=== PATIENT | female | born 1945 | race Caucasian/White ===

== ENCOUNTER → 2023-04-15 23:19 | Outpatient (CLI) | payer MEDICARE, SELFPAY ==
[2023-04-15 18:57] LABS: Hemoglobin A1C 10.4 % (4.0-6.0)
== END ==
PROVIDERS: PCP Family Medicine; Visit Provider Family Medicine
DX: E11.9 Type 2 diabetes mellitus without complications (principal); Z79.4 Long term (current) use of insulin
CPT/HCPCS: 83036

== ENCOUNTER → 2023-07-17 23:18 | Outpatient (CLI) | payer MEDICARE, SELFPAY ==
[2023-07-17 19:27] LABS: Alanine Aminotransferase 27 U/L (12-78); Albumin Level 4.2 g/dl (3.5-5.0); Albumin/Globulin Ratio 1.5 (1.1-1.8); Alkaline Phosphatase 75 U/L (38-126); Anion Gap 15.7 mEq/L (5-15); Aspartate Amino Transferase 33 U/L (14-36); Bilirubin,Total 0.3 mg/dl (0.2-1.3); Blood Urea Nitrogen 19 mg/dl (7-17); Calcium 9.9 mg/dl (8.4-10.2); Carbon Dioxide 21 mmol/L (22.0-30.0); Chloride 105 mmol/L (98-107); Chol/HDL Ratio 3.4 (1-3.5); Cholesterol 208 mg/dl (140-200); Estimated Glomerular Filt Rate 70 ml/min (>60); GFR (African American) 84 ML/MIN (>60); Globulin 2.8 g/dL (1.3-3.2); Glucose 370 mg/dl (74-100); HDL Cholesterol 62 mg/dl (40-60); Potassium 4.7 mmoL/L (3.5-5.1); Sodium 137 mmol/L (136-145); Triglycerides 211 mg/dl (30-150); VLDL Cholesterol 42 mg/dL (0-40)
[2023-07-17 19:39] LABS: Direct LDL Cholesterol 120.31 mg/dL (100-129)
[2023-07-17 20:13] LABS: Hemoglobin A1C 9.3 % (4.0-6.0)
== END ==
PROVIDERS: PCP Family Medicine; Visit Provider Family Medicine
DX: E11.9 Type 2 diabetes mellitus without complications (principal); C18.9 Malignant neoplasm of colon, unspecified; Z79.4 Long term (current) use of insulin; Z79.84 Long term (current) use of oral hypoglycemic drugs
CPT/HCPCS: 80053; 80061; 83036

== ENCOUNTER 2024-04-06 16:24 | Outpatient (CLI) | payer MEDICARE, SELFPAY ==
[2024-04-08 08:48] LABS: CEA 2.3 ng/mL (0.0-4.7)
== END 2024-04-06 23:59 | disposition home or self-care (01) ==
LOC: LAB.DROPOF 04-07 16:25
PROVIDERS: PCP Family Medicine; Visit Provider Family Medicine
DX: N39.0 Urinary tract infection, site not specified (principal); C18.9 Malignant neoplasm of colon, unspecified
CPT/HCPCS: 82378; 87086; 87088; 87186

== ENCOUNTER 2025-07-09 09:47 | Outpatient (CLI) | payer MEDICARE, SELFPAY ==
[2025-07-09 19:36] LABS: Alanine Aminotransferase 30 U/L (12-78); Albumin Level 3.3 g/dl (3.5-5.0); Albumin/Globulin Ratio 0.9 (1.1-1.8); Alkaline Phosphatase 86 U/L (38-126); Anion Gap 12.6 mEq/L (5-15); Aspartate Amino Transferase 49 U/L (14-36); Bilirubin,Total 0.6 mg/dl (0.2-1.3); Blood Urea Nitrogen 15 mg/dl (7-17); Calcium 9.9 mg/dl (8.4-10.2); Carbon Dioxide 24 mmol/L (22.0-30.0); Chloride 102 mmol/L (98-107); Creatinine,Serum 0.90 mg/dl (0.52-1.04); Estimated Glomerular Filt Rate 61 ml/min (>60); GFR (African American) 73 ML/MIN (>60); Globulin 3.8 g/dL (1.3-3.2); Potassium 4.6 mmoL/L (3.5-5.1); Sodium 134 mmol/L (136-145); Total Protein,Serum 7.1 g/dl (6.3-8.2)
[2025-07-09 19:48] LABS: Glucose 411 mg/dl (74-100)
--- OUTSIDE RECORDS SUMMARY | 2025-07-12 09:59 | XMS_ITS | Continuity of Care Document ---
[facility] Organization [facility] Address [address] [place] [address] Assessment No assessment recorded. Plan of Treatment Reminders Order Date Submit Date Provider Last Modified By Organization Details Last Modified Time Details Appointments None recorded. Lab None recorded. Referral None recorded. Procedures None recorded. Surgeries None recorded. Imaging None recorded. Medication Orders Macrobid 100 mg capsule 2024 025 [facility] [place] [id number] [facility], [place], [address], 16:01:10 Patient TargetsNo targets recorded. Patient Instructions Encounter Date Encounter Id Patient Instructions Last Modified By Organization Details Last Modified Time 07/07/2025 [id number] learning about healthy weight Not available 07/07/2025 17:33:34 body mass index: care instructions Not available 07/07/2025 17:33:34 Take your antibiotics as directed. Do not stop taking them just because you feel better. You need to take the full course of antibiotics. Drink extra water and other fluids for the next day or two. This will help make the urine less concentrated and help wash out the bacteria that are causing the infection. (If you have kidney, heart, or liver disease and have to limit fluids, talk with your doctor before you increase the amount of fluids you drink.) Avoid drinks that are carbonated or have caffeine. They can irritate the bladder. Urinate often. Try to empty your bladder each time. To relieve pain, take a hot bath or lay a heating pad set on low over your lower belly or genital area. Never go to sleep with a heating pad in place. Not available 07/07/2025 17:10:21 unable to urinat e in office Specium cup given to pt, advised to return it after she voids Advised to take medication as directed Will call with results of labs once available To call office for questions, concerns or issues Not available 07/07/2025 17:10:12 Reason for Referral None Reported. Problems Name Problem SNOMED Code Status Onset Date Resolution Date Notes Provider Name and Address Organization Details Recorded Time Hospice care Completed 05/24/2020 This problem was added from Social History by prashant on 10/08/19 19 Kathy Smith null, [place] - [facility] 0 17:36:19 Acquired hypothyr oidism 024791259 Active 2016 Crystal Kathryn null, [place] - [facility] 1 13:54:48 Mixed hyperlip idemia 276448857 Active 2016 Crystal Kathryn null[place] - [facility] 1 13:54:48 [facility] hyperten margarita 96604528 Active 2016 Crystal Kathryn [place] [facility] 1 13:54:48 Chronic anxiety 155353903 Active 2016 Crystal Kathryn [place] [facility] 1 13:54:48 Diabetes mellitus 10455491 Completed 201612/05/2020 Rachana Graves RN [address] [facility], [place], [address] , [place] - [facility] 1 07:52:02 Gastroes ophageal reflux disease without esophagi tis 565735631 Active 2016 Crystal Kathryn [place] [facility] 1 13:54:48 Major depressi ve disorder 215867263 Active 2016 Crystal Kathryn [place] [facility] 1 13:54:48 Steatoti c liver disease 201481966 Active 2016 Crystal Kathryn [place] [facility] 1 13:54:48 Deviated nasal septum 401818249 Active 2016 Crystal Kathryn [place] [facility] 1 13:54:48 Renewal of prescrip tion Completed 201612/24/2017 Piedad [place] - [facility] 8 12:41:39 Persiste nt insomnia 036558737 Active 2017 Crystal Kathryn [place] [facility] 1 13:54:48 Degenera tion of interver tebral disc 06437670 Active 2017 Crystal Kathryn [place] [facility] 1 13:54:48 Generali zed osteoart hritis 195013392 Active 2017 Crystal Kathryn [place] [facility] 1 13:54:48 Pain radiatin g to neck 646873893 Completed 201703/14/2018 Piedad Aquinohop null[place] - [facility] 8 19:14:35 Degenera tion of cervical interver tebral disc 14767505 Active 2017 Rachana Del Tororod null[place] - [facility] 1 13:54:48 Recurren t major depressi on 88563908 Active 2020 Rachana Del Tororod [place] - [facility] 1 13:54:48 Malignan t neoplasm of colon 895748096 Active 2020 Kathy Sarah null[place] - [facility] 1 14:10:59 Uncontro lled type 2 diabetes mellitus 999633378 Active 2021 Zachary Abel null[place] - [facility] 2 14:43:51 Allergic rhinitis 13526423 Completed 202205/28/2023 Rachana Peralta null, [place] - [facility] 3 13:36:38 Pain of right shoulder joint 84882453448 705939 Completed 202212/16/2024 Rachana Graves, RN [address], [place], [address] , [place] - [facility] 5 11:18:22 Chronic back pain 815575436 Active 2022 Sandy Quintana, [employer] [address], [place], [address] , [place] - [facility] 3 15:01:26 Increase d frequenc y of urinatio n 708343675 Completed 202212/16/2024 Rachana Graves RN [address], [place], [address] , [place] [facility] 5 11:18:02 Type 2 diabetes mellitus 26509159 Active 2022 Sandy Quintana, GUNNAR [address], [place], [address] , [place] [facility] 3 14:24:29 Leukocyt es in urine 828583533 Completed 202212/16/2024 Rachana Graves RN [address], [place], [address] , [place] [facility] 5 11:18:07 Acute urinary tract infectio n 475456363 Completed 202212/10/2023 Crystal Kathryn null[place] - [facility] 4 13:04:20 Acquired absence of cervix and uterus 933084639 Active 2023 Crystal Kathryn [place] - [facility] 4 13:10:54 Acute lower respirat ory tract infectio n 600065165 Completed 202312/20/2023 Crystal Kathryn [place] - [facility] 4 13:05:57 Urine culture - E. 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 Procedures Surgical History Date Name Laterality Status Provider Name and Address Organization Details Recorded Time Advance Care Planning completed Rachana Peralta [place] - [facility] 12/05/2020 09:02:19 021 Functional Status Assessed completed Crystal Kathryn [place] - [facility] 12/05/2020 09:02:20 021 Colonoscopy completed Rachana BARRERA - [facility] 12/05/2020 09:11:46 018 Cryosurgery Dermatology completed Kathy Smith [place] - [facility] 04/10/2018 15:22:14 018 Cryosurgery Dermatology completed Kathy Smith [place] - [facility] 04/07/2018 16:52:25 018 Shave Biopsy trunk, arms, or legs completed Kathy Short [place] - [facility] 04/10/2018 15:28:52 018 Advance Care Planning completed Piedad De Los Santos [place] - [facility] 02/26/2018 08:09:53 018 Suture/Staple removal completed Neo Gu [place] - [facility] 12/18/2017 11:26:24 018 Skin Lesion/Tag Removal- SS completed Piedad De Los Santos [place] - [facility] 12/10/2017 19:05:34 000 total hysterectomy completed Rachana Peralta [place] - [facility] 12/10/2023 13:10:27 Cholecystectomy, laparoscopic completed Rachana BARRERA - [facility] 05/23/2020 14:24:22 Cystourethroscopy completed Piedad De Los Santos [place] - [facility] 03/18/2017 15:38:07 Nsl/sins ndsc frnt tiss rmvl completed Piedad BARRERA - [facility] 03/18/2017 15:38:17 Imaging Results None recorded. Procedure Notes None recorded. Medical Equipment None Reported. Allergies Allergen ID Allergen Name Allergen Category Reaction Reaction Severity Criticality Documentation Date Start Date Code Code System Note Provider Name and Address Organization Details Recorded Time [id number] Farxiga medicatio n vomiting Not available Not available 04/25/2021 81022 72 RxNorm Miriam Leiva PharmD [address], [place], [address], [place] - [facility] 3 11:38:01 355626 Januvia medicatio n vomiting Not available Not available 08/06/2022 76607 6 RxNorm Miriam Leiva PharmD [address], [place], [address], [place] - [facility] 3 11:38:11 54582 citalopra m hydrobrom jef medicatio n vomiting Not available Not available 06/15/20162009 97012 8 RxNorm Miriam Leiva PharmD [address], [place], [address], [place] - [facility] 3 11:37:45 64929 Wellbutri n medicatio n dizziness Not available Not available 06/15/20162009 19601 RxNorm React ion: Verti go; Not Available [facility] 09:04:46 Medications Name Sig Start Date Stop Date Status Note LastModified by Organization Details LastModified Time Prescript ion - Clarifica tion 05/23 completed ANTHEM Not Available Not Available Not Available celecoxib 200 mg capsule TAKE 1 CAPSULE BY MOUTH EVERY DAY 07/07 completed Not Available Not Available Not Available amoxicill in 500 mg capsule TAKE ONE (1) CAPSULE EVERY 8 HOURS BY ORAL ROUTE FOR 7 DAYS. 08/14 completed Not Available Not Available Not Available fluconazo le 100 mg tablet 11/29 completed Not Available Not Available Not Available bupropion HCl SR 150 mg tablet,12 hr sustained -release take 1 tablet (150 mg) by oral route 2 times per day for 30 days 10/10 completed bupropio n HCl 150 mg oral tablet extended release; Recorded Status: Recorded on: 04/04/20 10 9:50AM;D iscontin ued Status: Disconti nued on: 10/10/19 11 9:06AM;U ser: calvom;E st. Completi on: 07/03/20 10;Print ed: 04/04/20 10 Not Available Not Available Not Available promethaz ine-DM 6.25 mg-15 mg/5 mL oral syrup TAKE FIVE (5) ML EVERY FOUR (4) HOURS BY ORAL ROUTE NEEDED. 12/09 completed Not Available Not Available Not Available levothyro xine 137 mcg tablet TAKE ONE TABLET BY MOUTH ONCE DAILY 05/24 completed reduced dose Not Available Not Available Not Available doxycycli ne hyclate 100 mg capsule Take 1 capsule twice a day by oral route for 7 days. 12/16 completed Not Available Not Available Not Available paroxetin e 10 mg tablet 1 tab p.o daily for 2 weeks, then increase to 2 tabs a day , if well tolerate d give enough for a month 04/04 completed paroxeti ne HCl 10 mg oral tablet;c omment: GI side effects; Recorded Status: Recorded on: 01/07/20 10 12:24PM; Disconti nued Status: Disconti nued on: 04/04/20 10 9:47AM;U ser: stephanie; Est. Completi on: 02/06/20 10;Print ed: 01/07/20 10 Not Available Not Available Not Available ipratropi um 0.5 mg-albute rol 3 mg (2.5 mg base)/3 mL nebulizat ion soln INHALE THREE (3) ML FOUR (4) TIMES A DAY BY NEBULIZA TION ROUTE FOR 30 DAYS. 02/23 completed Not Available Not Available Not Available Glucophag e 500 mg tablet po bid 02/04 completed Glucopha ge 500 mg oral tablet;R ecorded Status: Recorded on: 10/18/19 09 1:50PM;D iscontin ued Status: Disconti nued on: 02/05/20 09 3:46PM;U ser: lila; Est. Completi on: 04/16/20 09;Indic ation: Type 2 Diabetes Mellitus - () Not Available Not Available Not Available trazodone 50 mg tablet take 1 tablet (50 mg) by oral route once daily at bedtime for 30 days 01/31 completed trazodon e 50 mg oral tablet;R ecorded Status: Recorded on: 10/02/19 12 9:28AM;D iscontin ued Status: Disconti nued on: 02/01/20 12 8:43AM;U ser: calvom;E st. Completi on: 12/31/19 12;Indic ation: Insomnia - ([phone] 20);Prin ino: 10/02/19 12 Not Available Not Available Not Available cetirizin e 10 mg tablet Take 1 tablet every day by oral route for 30 days. 02/18 completed Not Available Not Available Not Available azithromy kevin 250 mg tablet TAKE TWO (2) TABLETS BY MOUTH ON DAY ONE (1) THEN TAKE ONE (1) TABLET BY MOUTH ON DAYS 2-5. 11/22 completed Not Available Not Available Not Available tizanidin e 4 mg tablet TAKE ONE (1) TABLET TWICE A DAY BY ORAL ROUTE NEEDED. 03/30 completed Not Available Not Available Not Available fluconazo le 150 mg tablet TAKE ONE (1) TABLET (150 MG) BY ORAL ROUTE ONCE DAILY FOR THREE (3) DAYS 11/29 completed Not Available Not Available Not Available benzonata te 200 mg capsule TAKE ONE (1) CAPSULE THREE (3) TIMES A DAY BY ORAL ROUTE NEEDED FOR 7 DAYS. 05/30 completed Not Available Not Available Not Available ampicilli n 500 mg capsule Take 1 capsule 3 times a day by oral route for 7 days. 05/07 completed Not Available Not Available Not Available hydrocodo ne 5 mg-acetam inophen 325 mg tablet TAKE ONE (1) TABLET BY MOUTH AT BEDTIME NIGHTLY NEEDED FOR PAIN 03/06 completed Not Available Not Available Not Available ondansetr on HCl 8 mg tablet TAKE ONE (1) TABLET BY MOUTH EVERY EIGHT (8) HOURS NEEDED FOR NAUSEA. active Not Available Not Available No t Available Avelox 400 mg tablet take 1 tablet (400 mg) by oral route once daily for 7 days 04/10 completed Avelox 400 mg oral tablet;R ecorded Status: Recorded on: 02/28/20 11 10:55AM; Disconti nued Status: Disconti nued on: 04/10/20 11 8:43AM;U ser: calvom;E st. Completi on: 03/06/20 11;Indic ation: Skin and Skin Structur e Infectio n - ([phone] 00) Not Available Not Available Not Available meloxicam 15 mg tablet TAKE 1 TABLET BY MOUTH EVERY DAY 03/06 completed Not Available Not Available Not Available lisinopri l 20 mg tablet TAKE ONE (1) TABLET BY MOUTH EVERY DAY active Not Available Not Available No t Available Medrol (Donato) 4 mg tablets in a dose pack take as directed for 6 days 12/16 completed Not Available Not Available Not Available Levoxyl 100 mcg tablet take 1 tablet (100 mcg) by oral route once daily 10/18 completed Levoxyl 100 mcg oral tablet;R ecorded Status: Recorded on: 09/20/19 2:32PM;D iscontin ued Status: Disconti nued on: 10/18/19 1:50PM;U ser: neuss;Es t. Completi on: 10/20/19 09;Print ed: 09/20/19 Not Available Not Available Not Available lovastati n 40 mg tablet TAKE TWO (2) TABLETS EVERY DAY BY ORAL ROUTE IN THE EVENING FOR 90 DAYS. 05/04 completed Not Available Not Available Not Available olanzapin e 5 mg tablet TAKE ONE (1) TO TWO (2) TABLETS BY MOUTH NIGHTLY. 11/14 completed Not Available Not Available Not Available Accu-Chek Softclix Lancets TEST BLOOD SUGAR EVERY DAY active Not Available Not Available No t Available promethaz ine 6.25 mg-codein e 10 mg/5 mL syrup TAKE FIVE (5) MILLILIT ERS BY ORAL ROUTE EVERY SIX (6) HOURS NEEDED, NOT TO EXCEED 30 ML IN 24 HOURS FOR 7 DAYS 05/04 completed Not Available Not Available Not Available bacitraci n 500 unit/gram topical ointment APPLY ONE (1) APPLICAT ION THREE (3) TIMES A DAY BY TOPICAL ROUTE FOR 7 DAYS. 11/29 completed Not Available Not Available Not Available diphenoxy late-atro pine 2.5 mg-0.025 mg tablet ALTERNAT E WITH IMODIUM. NO MORE THAN FOUR (4) PILLS PER DAY. 03/30 completed Not Available Not Available Not Available melatonin 3 mg tablet Take 1 tablet every day by oral route in the evening. 11/14 completed Not Available Not Available Not Available ciproflox acin 250 mg tablet TAKE ONE (1) TABLET TWICE A DAY BY ORAL ROUTE FOR 10 DAYS. 04/11 completed Not Available Not Available Not Available amlodipin e 5 mg tablet TAKE ONE (1) TABLET BY MOUTH EVERY DAY 11/14 completed Not Available Not Available Not Available prochlorp erazine maleate 10 mg tablet TAKE 1 TABLET BY MOUTH EVERY 8 HOURS NEEDED FOR NAUSEA OR VOMITING 04/10 completed Not Available Not Available Not Available valacyclo vir 500 mg tablet TAKE 1 TABLET BY MOUTH EVERY 12 HOURS 03/30 completed Not Available Not Available Not Available ciproflox acin 500 mg tablet TAKE ONE (1) TABLET EVERY 12 HOURS BY ORAL ROUTE FOR 7 DAYS. 02/26 completed Not Available Not Available Not Available sulfameth oxazole 800 mg-trimet hoprim 160 mg tablet TAKE 1 TABLET BY MOUTH TWICE DAILY 05/04 completed Not Available Not Available Not Available omeprazol e 40 mg capsule,d elayed release TAKE ONE (1) CAPSULE EVERY DAY BY ORAL ROUTE FOR 90 DAYS. active Not Available Not Available No t Available aspirin 81 mg tablet,de layed release TAKE ONE (1) TABLET BY MOUTH DAILY FOR 90 DAYS. active OTC per [facility] 02/23/25 Not Available Not Available Not Available acyclovir 800 mg tablet take 1 tablet (800 mg) by oral route 5 times per day for 10 days 04/10 completed acyclovi r 800 mg oral tablet;R ecorded Status: Recorded on: 02/29/20 11 8:48AM;D iscontin ued Status: Disconti nued on: 04/10/20 11 8:43AM;U ser: calvom;E st. Completi on: 03/10/20 11;Print ed: 02/29/20 11 Not Available Not Available Not Available ondansetr on 8 mg disintegr ating tablet DISSOLVE 1 TABLET ON THE TONGUE EVERY 8 HOURS NEEDED FOR NAUSEA. DO NOT TAKE FOR 3 DAYS AFTER CHEMOTHE RAPY GIVEN ALOXI 03/28 completed Not Available Not Available Not Available lidocaine -prilocai ne 2.5 %-2.5 % topical cream APPLY ONE NICKEL-S IZED GLOB OVER PORT APPROXIM ATELY 30 MINUTES BEFORE APPOINTM ENT. DO NOT RUB IN. COVER WITH PLASTIC WRAP. 01/09 completed Not Available Not Available Not Available Macrobid 100 mg capsule Take 1 capsule every 12 hours by oral route for 5 days. 2024 active Not Available Not Available Not Avai lable ceftriaxo ne 1 gram solution for injection Take 1 g by injectio n route. 05/07 completed Not Available Not Available Not Available citalopra m 20 mg tablet take 1 tablet (20 mg) by oral route once daily for 30 days 01/06 completed citalopr am 20 mg oral tablet;R ecorded Status: Recorded on: 01/04/20 10 10:11AM; Disconti nued Status: Disconti nued on: 01/07/20 10 12:04PM; User: Chava Damon on: 02/03/20 10;Print ed: 01/04/20 10 Not Available Not Available Not Available lorazepam 0.5 mg tablet TAKE ONE (1) TABLET BY MOUTH EVERY DAY NEEDED 05/28 completed Not Available Not Available Not Available metoclopr amide 5 mg tablet 02/18 completed Not Available Not Available Not Available imiquimod 5 % topical cream packet APPLY TO THE AFFECTED AREA(S) BY TOPICAL ROUTE 5 TIMES PER WEEK as needed 05/23 completed Not Available Not Available Not Available phenazopy ridine 100 mg tablet 05/23 completed Not Available Not Available Not Available cephalexi n 500 mg capsule TAKE ONE (1) CAPSULE (500 MG) BY ORAL ROUTE EVERY 12 HOURS FOR 7 DAYS 11/09 completed Not Available Not Available Not Available trazodone 150 mg tablet Take 1 tablet every day by oral route in the evening. 02/26 completed Not Available Not Available Not Available metformin 1,000 mg tablet TAKE ONE (1) TABLET BY MOUTH TWICE DAILY active Not Available Not Available No t Available levothyro xine 125 mcg tablet TAKE ONE (1) TABLET BY MOUTH EVERY DAY active Not Available Not Available No t Available nystatin 100,000 unit/gram topical cream APPLY TOPICALL Y THREE (3) TIMES DAILY FOR 14 DAYS. 03/30 completed Not Available Not Available Not Available dexametha sone 4 mg tablet TAKE 2 TABLETS BY MOUTH EVERY MORNING FOR 2 DOSES ON DAYS 2 AND 3 OF EACH CYCLE 03/28 completed Not Available Not Available Not Available clotrimaz ole-betam ethasone 1 %-0.05 % topical cream APPLY ONE (1) APPLICAT ION TWICE A DAY BY TOPICAL ROUTE NEEDED. 02/23 completed Not Available Not Available Not Available glimepiri de 4 mg tablet TAKE ONE TABLET BY MOUTH TWICE DAILY 05/23 completed Not Available Not Available Not Available promethaz ine 25 mg tablet TAKE ONE (1) TABLET EVERY FOUR (4) HOURS BY ORAL ROUTE FOR FOUR (4) DAYS. 12/19 completed Not Available Not Available Not Available Citrucel 500 mg tablet take 1 tablet by oral route daily for 30 days 06/05 completed Citrucel 500 mg oral tablet;R ecorded Status: Recorded on: 05/13/20 12 8:53AM;D iscontin ued Status: Disconti nued on: 06/05/20 12 2:26PM;U ser: calvom;E st. Completi on: 08/11/20 12;Print ed: 05/13/20 12 Not Available Not Available Not Available gabapenti n 300 mg capsule TAKE ONE (1) CAPSULE BY MOUTH TWO (2) TIMES DAILY NEEDED. 04/11 completed Not Available Not Available Not Available omeprazol e 20 mg capsule,d elayed release TAKE ONE CAPSULE BY MOUTH EVERY DAY BEFORE A MEAL 06/28 completed omeprazo le 20 mg oral capsule, delayed release( /EC);R ecorded Status: Recorded on: 05/06/20 14 8:50AM;D iscontin ued Status: Disconti nued on: 06/28/20 14 1:36PM;U ser: grayn;Es t. Completi on: 09/03/20 14;Print ed: 05/06/20 14 Not Available Not Available Not Available mupirocin 2 % topical ointment APPLY A SMALL AMOUNT TO THE AFFECTED AREA BY TOPICAL ROUTE THREE (3) TIMES PER DAY NEEDED active Not Available Not Available No t Available Levaquin 500 mg tablet take 1 tablet by oral route once a day for 7 days 05/06 completed Levaquin 500 mg oral tablet;P rescribe Status: Prescrib ed on: 02/09/20 14 10:21AM; Disconti nued Status: Disconti nued on: 05/06/20 14 8:50AM;U ser: grayn;Es t. Completi on: 02/16/20 14;Pharm acyVerif ied: 02/09/20 14 10:21AM; Printed: 02/09/20 14 Not Available Not Available Not Available Synthroid 112 mcg tablet take 1 tablet (112 mcg) by oral route once daily for 30 days 09/20 completed Synthroi d 112 mcg oral tablet;R ecorded Status: Recorded on: 09/14/19 15 9:34AM;D iscontin ued Status: Disconti nued on: 09/20/19 15 9:41AM;U ser: grayn;Es t. Completi on: 01/13/20 15;Print ed: 09/14/19 15 Not Available Not Available Not Available lorazepam 1 mg tablet TAKE 1 TABLET BY MOUTH AT BEDTIME NIGHTLY NEEDED FOR ANXIETY 02/08 completed Not Available Not Available Not Available Chung rodriguez Anestheti c 20 % topical lubricant apply as directed BID PRN 07/13 completed Alfredo steinberg Anesthet ic 20 % topical lubrican t;Record ed Status: Recorded on: 05/13/20 12 8:53AM;D iscontin ued Status: Disconti nued on: 07/13/20 13 9:03AM;U ser: calvom;E st. Completi on: 05/23/20 12;Print ed: 05/13/20 12 Not Available Not Available Not Available estradiol 0.01% (0.1 mg/gram) vaginal cream APPLY PEA-SIZE D AMOUNT USING FINGERTI P INTO THE VAGINA (OR INSTRUCT ED) NIGHTLY. 02/23 completed Not Available Not Available Not Available Anusol-HC 25 mg rectal supposito ry insert 1 supposit ory (25 mg) by rectal route 2 times per day for 2 weeks 07/13 completed Anusol-H C 25 mg rectal supposit ory;Jonnathan rded Status: Recorded on: 05/13/20 12 8:53AM;D iscontin ued Status: Disconti nued on: 07/13/20 13 9:03AM;U ser: calvom;E st. Completi on: 05/27/20 12;Indic ation: Hemorrho ids - ([id number]);Prin ino: 05/13/20 12 Not Available Not Available Not Available levofloxa kevin 750 mg tablet TAKE ONE (1) TABLET BY MOUTH DAILY FOR 10 DAYS. 05/30 completed Not Available Not Available Not Available albuterol sulfate HFA 90 mcg/actua tion aerosol inhaler INHALE ONE (1) - TWO (2) PUFFS BY INHALATI ON ROUTE EVERY SIX (6) HOURS NEEDED 03/02 completed Not Available Not Available Not Available lisinopri l 40 mg tablet 05/23 completed Not Available Not Available Not Available cefdinir 300 mg capsule TAKE ONE (1) CAPSULE EVERY 12 HOURS BY ORAL ROUTE FOR 10 DAYS. 07/08 completed Not Available Not Available Not Available fluticaso ne propionat e 50 mcg/actua tion nasal spray,jeyson pension INSTILL ONE (1) SPRAY INTO EACH NOSTRIL EVERY DAY active Not Available Not Available No t Available sertralin e 50 mg tablet TAKE ONE (1) TABLET BY MOUTH EVERY DAY active Not Available Not Available No t Available dicyclomi ne 10 mg capsule 05/23 completed Not Available Not Available Not Available loratadin e 10 mg tablet TAKE ONE (1) TABLET EVERY DAY BY ORAL ROUTE FOR 14 DAYS. 11/14 completed Not Available Not Available Not Available naproxen 500 mg tablet take 1 tablet by oral route 2 times a day for 14 days 06/21 completed naproxen 500 mg oral tablet;P rescribe Status: Prescrib ed on: 06/08/20 14 12:45AM; User: michelle;Es t. Completi on: 06/21/20 14;Indic ation: Pain - ([id number]);Phar macyVeri fied: 06/08/20 14 12:45AM Not Available Not Available Not Available metoclopr amide 10 mg tablet TAKE 1 TABLET BY MOUTH FOUR (4) TIMES DAILY ONE (1) DAY PRIOR TO BOWEL PREP 05/04 completed Not Available Not Available Not Available amoxicill in 875 mg-potass ium clavulana te 125 mg tablet Take 1 tablet every 12 hours by oral route for 7 days. 05/30 completed Not Available Not Available Not Available Pneumovax -23 25 mcg/0.5 mL injection syringe inject 0.5 millilit er intramus cularly 05/23 completed Not Available Not Available Not Available azithromy kevin 500 mg tablet TAKE ONE (1) TABLET EVERY DAY BY ORAL ROUTE FOR FIVE (5) DAYS. TAKE AFTER A MEAL. 05/04 completed Not Available Not Available Not Available Novolog Mix 70-30 FlexPen U-100 Insulin 100 unit/mL subcutane ous pen INJECT 45 UNITS SUBCUTAN EOUSLY EACH MORNING active Not Available Not Available No t Available cyclobenz aprine 5 mg tablet take 1 tablet (5 mg) by oral route 3 times per day for 14 days 06/21 completed cycloben zaprine 5 mg oral tablet;P rescribe Status: Prescrib ed on: 06/08/20 14 12:43AM; User: Mishel Ortiz on: 06/21/20 14;Indic ation: Muscle Spasm - (13.7288 50);Phar [email or web address] fied: 06/08/20 14 12:43AM Not Available Not Available Not Available Premarin 0.625 mg/gram vaginal cream apply 0.5 gram with fingers by vaginal route q HS x 1 week, then twice weekly 08/24 completed Premarin 0.625 mg/gram vaginal cream;Re corded Status: Recorded on: 06/05/20 12 2:54PM;D iscontin ued Status: Disconti nued on: 08/24/20 13 9:04AM;U ser: [email or web address];[place] [address] Completi on: 09/03/20 12;Print ed: 06/05/20 12 Not Available Not Available Not Available rosuvasta tin 20 mg tablet TAKE ONE (1) TABLET BY MOUTH EVERY DAY active Not Available Not Available No t Available Hair,Skin and Nails tablet Take 2 tablets every day by oral route. 03/06 completed Not Available Not Available Not Available ergocalci ferol (vitamin D2) 1000 units qd po 04/10 completed not linked in [place] Not Available Not Available Not Available cephalexi n 02/28 completed cephalex in Oral;Rec orded Status: Recorded on: 02/28/20 11 8:35AM;D iscontin ued Status: Disconti nued on: 02/29/20 11 10:25AM; User: [email or web address] Not Available Not Available Not Available Amaryl one bid 07/13 completed amaRYL 4 mg.;Jonnathan rded Status: Recorded on: 09/08/20 12 3:37PM;D iscontin ued Status: Disconti nued on: 07/13/20 13 9:03AM;U ser: [email or web address]; Est. Completi on: 10/08/19 13;Indic ation: dm - (-5) Not Available Not Available Not Available cholecalc iferol (vitamin D3) 25 mcg (1,000 unit) tablet TAKE ONE (1) TABLET EVERY DAY BY ORAL ROUTE FOR 90 DAYS. active Not Available Not Available No t Available Januvia 100 mg tablet take 1 tablet (100 mg) by oral route once daily for 30 days 03/28 completed Not Available Not Available Not Available acetylcys teine 600 mg capsule TAKE ONE (1) CAPSULE BY MOUTH DAILY FOR 14 DAYS. 12/16 completed Not Available Not Available Not Available peg 3350-elec trolytes 236 gram-22.7 4 gram-6.74 gram-5.86 gram solution 01/09 completed Not Available Not Available Not Available FeroSul 325 mg (65 mg iron) tablet TAKE ONE (1) TAB BY MOUTH TWO (2) TIMES DAILY. 04/25 completed per [facility] Not Available Not Available Not Available Lantus Solostar U-100 Insulin 100 unit/mL (3 mL) subcutane ous pen INJECT 80 UNITS SUBCUTAN EOUSLY EVERY DAY 02/23 completed Not Available Not Available Not Available levocetir izine 5 mg tablet TAKE ONE (1) TABLET BY MOUTH EVERY DAY active Not Available Not Available No t Available vitamin E (dl, acetate) 180 mg (400 unit) capsule Take 1 capsule every day by oral route. active OTC per [facility] 02/23/25 Not Available Not Available Not Available Onglyza 5 mg tablet Take 1 tablet every day by oral route. 09/16 completed Not Available Not Available Not Available Solu-Medr ol (PF) 125 mg/2 mL solution for injection Take 125 mg by injectio n route. 05/04 completed Not Available Not Available Not Available levothyro xine 137 mcg capsule Take 1 capsule every day by oral route. 03/28 completed Not Available Not Available Not Available B12 1000ieu' s po qd 03/18 completed Not Available Not Available Not Available sodium,po tassium,m ag sulfates 17.5 gram-3.13 gram-1.6 gram oral soln TAKE SIX (6) OZ BY MOUTH TWO (2) TIMES DAILY. TAKE DIRECTED BY PHYSICIA N OFFICE 07/08 completed Not Available Not Available Not Available Tradjenta 5 mg tablet take 1 tablet (5 mg) by oral route once daily 09/16 completed Tradjent a 5 mg oral tablet;R ecorded Status: Recorded on: 10/14/19 15 9:47AM;U ser: [email or web address];Es t. Completi on: 02/12/20 15;Indic ation: Type 2 Diabetes Mellitus - (03.2500 00);Prin ino: 10/14/19 15 Not Available Not Available Not Available vitamin E (dl, acetate) 450 mg (1,000 unit) capsule Take 1 capsule every day by oral route. 04/19 completed Not Available Not Available Not Available Accu-Chek FastClix Lancing Device ONE EVERY DAY 12/09 completed Not Available Not Available Not Available TRUEplus Lancets 30 gauge use as directed 12/07 completed TRUEplus Lancets 30 gauge miscella neous misc;Rec orded Status: Recorded on: 09/16/19 13 10:48AM; Disconti nued Status: Disconti nued on: 12/08/19 14 8:13AM;U ser: [email or web address]; Printed: 09/16/19 13 Not Available Not Available Not Available Victoza 2-Donato 0.6 mg/0.1 mL (18 mg/3 mL) subcutane ous pen injector inject 0.2 millilit er (1.2 mg) by subcutan eous route once daily 10/14 completed Victoza 2-Donato 0.6 mg/0.1 mL (18 mg/3 mL) subcutan eous pen injector ;Recorde d Status: Recorded on: 10/07/19 15 4:16PM;D iscontin ued Status: Disconti nued on: 10/14/19 15 9:47AM;U ser: [email or web address];Es t. Completi on: 11/06/19 15;Indic ation: Type 2 Diabetes Mellitus - ();Prin ino: 10/07/19 15 Not Available Not Available Not Available Farxiga 10 mg tablet take 1 tablet (10 mg) by oral route once daily in the morning 10/07 completed Farxiga 10 mg oral tablet;R ecorded Status: Recorded on: 09/14/19 15 9:34AM;D iscontin ued Status: Disconti nued on: 10/07/19 15 4:16PM;U ser: grayn;Es t. Completi on: 01/13/20 15;Indic ation: Type 2 Diabetes Mellitus - ();Prin ino: 09/14/19 15 Not Available Not Available Not Available Humulin 70/30 U-100 Insulin KwikPen 100 unit/mL subcutane ous INJECT 35 UNIT (0.35 ML) SUBCUTAN EOUSLY TWICE A DAY 02/23 completed Not Available Not Available Not Available Farxiga 5 mg tablet take 1 tablet (5 mg) by oral route once daily in the morning 09/14 completed Farxiga 5 mg oral tablet;R ecorded Status: Recorded on: 05/06/20 14 8:50AM;D iscontin ued Status: Disconti nued on: 09/14/19 15 9:34AM;U ser: [email or web address];Es t. Completi on: 09/03/20 14;Indic ation: Type 2 Diabetes Mellitus - ( 00);Prin ino: 05/06/20 14 Not Available Not Available Not Available arginine- vitamin C-vitamin E 1 po qd 04/25 completed Not Available Not Available Not Available Fluzone High-Dose (PF) 180 mcg/0.5 mL intramusc ular syringe 03/18 completed Not Available Not Available Not Available Soliqua 100/33 100 unit-33 mcg/mL subcutane ous insulin pen INJECT 50 UNITS EVERY DAY BY SUBCUTAN EOUS ROUTE. 02/18 completed Not Available Not Available Not Available TRUEplus Pen Needle 32 gauge x 5/32 USE TWICE DAILY WITH NOVOLOG 70/30 active Not Available Not Available No t Available Accu-Chek Guide test strips TEST BLOOD SUGAR EVERY DAY active Not Available Not Available No t Available Fluad 65yr up(PF)45 mcg(15 mcgx3)/0. 5 mL intramusc ular syringe 09/16 completed Not Available Not Available Not Available Bydureon BCise 2 mg/0.85 mL subcutane ous auto-inje ctor Inject 2 mg every week by subcutan eous route. 12/18 completed Not Available Not Available Not Available Fluzone High-Dose (PF) 180 mcg/0.5 mL intramusc ular syringe 05/23 completed Not Available Not Available Not Available Accu-Chek Guide Me Glucose Meter test two times a day 12/09 completed Not Available Not Available Not Available Fluad 65yr up(PF)45 mcg(15 mcgx3)/0. 5 mL intramusc ular syringe inject 0.5 millilit ers intramus cularly 05/23 completed Not Available Not Available Not Available Fluzone High-Dose Quad (PF) 240 mcg/0.7 mL IM syringe 12/05 completed Not Available Not Available Not Available Dexcom G7 Addressograph Operator DIRECTED PER 90 DAYS active Not Available Not Available No t Available Dexcom G7 Sensor device USE DIRECTED PER 10 DAYS active Not Available Not Available No t Available Vitals Date Recorded Body height Body mass index (BMI) Body weight Heart rate Oxygen saturation Oxygen saturation in Arterial blood by Pulse oximetry Respiratory rate Pain severity - 0-10 verbal numeric rating [Score] - Reported Systolic And Diastolic Provider Name and Address Organization Details Last Updated DateTime 5 165.1 cm 31.3 kg/m2 17590.3 7 g 64 /min 97 % 97 % 18 /min 5 126/64 mm[Hg] Rachana Peralta [place] - [facility] 5 15:36:03 Social History Question Answer Notes LastModified by Organizat ion Details LastModified Time Tobacco Smoking Status Former Smoker 20 years ago Lonny Garibay fr[place], [place] - [facility] 01/23/2022 14:37:30 Do You Have An Advance Directive? No Information not available 02/26/2018 Are You Blind Or Do You Have Difficulty Seeing? No Information not available 03/18/2017 What Is Your Level Of Caffeine Consumption? Moderate [email or web address] Information not available 03/18/2017 Are You Deaf Or Do You Have Serious Difficulty Hearing? No [email or web address] Information not available 03/18/2017 What Type Of Diet Are You Following? DIABETIC [email or web address] Information not available 03/18/2017 Which Illicit Or Recreational Drugs Have You Used? Never [email or web address] Information not available 03/18/2017 Hard Of Hearing Or Deaf In One Or Both Ears? No [email or web address] Information not available 03/18/2017 Legally Blind In One Or Both Eyes? No [email or web address] Information not available 03/18/2017 Marital Status Informatio n not available 02/26/2018 What Was The Date Of Your Most Recent Tobacco Screening? 07/07/2025 Information not available 07/07/2025 What Is Your Relationship Status? [email or web address] Information not available 03/18/2017 Seat Belts Used Routinely Yes [email or web address] Information not available 03/18/2017 Are You Sexually Active? No Information not available 02/27/2023 Smoke Alarm In Home Yes [email or web address] Information not available 03/18/2017 How Much Tobacco Do You Smoke? 2 PPD [email or web address] Information not available 03/18/2017 Do You Use Sunscreen Routinely? Yes [email or web address] Information not available 02/26/2018 Has Tobacco Cessation Counseling Been Provided? Yes Former Smoker Information not available 05/30/2022 On What Date Was Tobacco Cessation Counseling Provided? 07/07/2025 Information not available 07/07/2025 How Many Years Have You Smoked Tobacco? 40 [email or web address] Information not available 03/18/2017 Do You Have Difficulty Walking Or Climbing Stairs? No [email or web address] Information not available 03/18/2017 Sex: Female Functional Status Question Answer Note LastModified by Organizat ion Details LastModified Time Do you use any illicit or recreational drugs? No Information not available 08/06/2022 Do you or have you ever used any other forms of tobacco or nicotine? No Information not available 08/06/2022 What is your level of alcohol consumption? None [email or web address] Information not available 03/18/2017 Are you currently employed? No [email or web address] Information not available 03/18/2017 Urinary incontinence assessment performed? Yes [email or web address] Information not available 02/26/2018 Are you able to walk independently without assistance or assistive devices? YESWOREST [email or web address] Information not available 02/26/2018 Do you have difficulty doing errands alone? No Information not available 03/18/2017 Are you able to care for yourself independently? Yes [email or web address] Information not available 03/18/2017 What is your occupation? retired Information not available 03/18/2017 Do you have difficulty dressing, bathing, grooming, or toileting? No [email or web address] Information not available 03/18/2017 What is your exercise level? Occasional [email or web address] Information not available 03/18/2017 Mental Status Question Answer Note LastModified by Organization D etails LastModified Time Do you have difficulty concentrating, remembering or making decisions? No [email or web address] Information no t available 03/18/2017 Family History Relationship Description Onset Age of this Age Resolved Age Notes LastModified by Organization Details LastModified Time Father Heart disease Not available 2019 14:23:20 Mother Heart disease Not available 2019 14:23:20 Sister Type 2 diabetes mellitus Not available 2019 14:23:41 Medical History No medical history recorded. Gynecological History Statement/Question Response Menses Monthly N Obstetrics History GPAL:G 0 P 0 0 0 0 Immunizations Vaccine Type Date Status Note Provider Nam e and Address Organization Details Recorded Time Pneumococcal conjugate PCV20, polysaccharide [id number] conjugate, adjuvant, PF 4 completed Crystal Kathryn null, [place] - [facility] 07/08/2024 13:08:02 Influenza, high-dose, trivalent, PF 4 completed Crystal Kathryn null, [place] - [facility] 07/08/2024 13:08:02 pneumococcal polysaccharide PPV23 0 completed Crystal Kathryn null, [place] - [facility] 05/23/2020 14:46:20 influenza, unspecified formulation 0 completed Not Available [facility] 06/10/2023 15:39:34 Tdap 3 completed Deb Scott null, [place] - [facility] 11/26/2022 13:37:45 pneumococcal polysaccharide PPV23 3 completed Crystal Kathryn null, [place] - [facility] 03/28/2021 13:54:48 Influenza, split virus, quadrivalent, preservative 7 completed Not Available [facility] 06/10/2023 15:39:34 Influenza, split virus, quadrivalent, preservative 8 completed Not Available [facility] 06/10/2023 15:39:34 Tdap 8 completed Not Available [facility] 09/26/2019 03:55:00 Influenza, split virus, quadrivalent, preservative 9 completed Not Available [facility] 06/10/2023 15:39:34 Influenza, split virus, quadrivalent, preservative 0 completed Not Available [facility] 06/10/2023 15:39:34 Influenza, high-dose, trivalent, PF 5 completed Sandy Quintana, [employer] [address], [place], [address], [place] - [facility] 06/15/2025 20:01:02 pneumococcal polysaccharide PPV23 9 completed Not Available [facility] 06/10/2023 15:39:34 pneumococcal polysaccharide PPV23 6 completed Crystal Kathryn null, [place] - [facility] 08/06/2022 14:04:18 Pneumococcal conjugate PCV 13 5 completed Crystal Kathryn [place] [facility] 08/06/2022 14:04:18 Pneumococcal conjugate PCV20, polysaccharide [id number] conjugate, adjuvant, PF 2 completed Crystal Kathryn null, [place] - [facility] 08/06/2022 14:04:18 Hep B, adult 8 completed Crystal Kathryn [place], [place] [facility] 08/06/2022 14:04:18 Tdap 0 completed Crystal Kathryn null, [place] - [facility] 08/06/2022 14:04:18 COVID-19 vaccine, vector-nr, [id number], PF, 0.5 mL 1 completed Crystal Kathryn null, [place] [facility] 08/06/2022 14:04:19 Influenza, high-dose, quadrivalent, PF 2 completed Crystal Kathryn null, [place] - [facility] 08/06/2022 14:04:19 pneumococcal polysaccharide PPV23 7 completed Crystal Kathryn [place], [place] [facility] 08/06/2022 14:04:19 Influenza, adjuvanted, trivalent, PF 7 completed Crystal Kathryn [place], [place] [facility] 08/06/2022 14:04:19 Influenza, high-dose, trivalent, PF 6 completed Crystal Kathryn [place], [place] [facility] 08/06/2022 14:04:19 Hep B, adult 8 completed Crystal Kathryn [place], [place] [facility] 08/06/2022 14:04:19 Influenza, high-dose, quadrivalent, PF 3 completed Crystal Kathryn null, [place] [facility] 12/10/2023 13:04:05 Pneumococcal conjugate PCV20, polysaccharide [id number] conjugate, adjuvant, PF 3 completed Crystal Kathryn null, [place] - [facility] 12/10/2023 13:04:05 Past Encounters Encounter ID Performer Location Encounter Start Date Encounter Closed Date Diagnosis/Indication Diagnosis SNOMED-CT Code Diagnosis ICD10 Code Diagnosis IMO Codes Diagnosis Note [id number] Sandy Quintana [facility] [address] [place] [address] 06/15/2025 14:09:53 06/16/2025 08:07:03 Influenza vaccine needed 9690273223 106 Z23 [id number] Sandy Quintana [facility] [address] [place] [address] 06/15/2025 14:22:00 06/15/2025 14:31:34 Influenza vaccine needed 7879794577 106 Z23 [id number] Sandy Quintana [facility] [address] [place] [address] 07/07/2025 15:27:49 07/07/2025 16:23:11 Obese class I 1332892933 13612 E66.811 Z68.31 [id number] Dysuria 25751107 R30.0 39014 Health Concerns Section Related Observation LastModified by Organization Detai ls LastModified Time None Recorded Concern Status LastModified by Organization Details LastModified Time None Recorded Payers Encounter Date Sequence Insurance Name Policy Number Policy Mukherjee Covered Member ID Mukherjee Member ID Guarantor Name 07/07/2025 1 [place] (MEDICARE REPLACEMENT REGIONAL O) [id number] Jacquelin Suresh [id number] Jacquelin Suresh Notes Date Note Type Note Provider Name and Address Organization Details Recorded Time 07/07/2025 text/html ROS as noted in the HPI Presents with 5 days of burning upon urinationDoes endorse increased frequency, odor and discoloration to urineDoes endorse N/V/DDenies any suprapubic or CVA tendernessNo fever or chillsHas been increasing fluids without improvementNo chest pain, shortness of breath, dizziness, lightheadedness, syncope, palpitations or edema. Compliant with medicationsDenies alcohol, tobacco and illicit drug usage Sandy Quintana APRN [address], [place], [address], [place] - [facility] 07/07/2025 17:10:35 OBGyn Episode No OBEpisode recorded.
--- OUTSIDE RECORDS SUMMARY | 2025-07-12 09:59 | XMS_ITS | Continuity of Care Document ---
Author Organization [facility], [facility] Address [address] [place] [address] Assessment No assessment recorded. Plan of Treatment Reminders Order Date Submit Date Provider Last Modified By Organization Details Last Modified Time Details Appointments None record ed. Lab None record ed. Referral None record ed. Procedures None record ed. Surgeries None record ed. Imaging None record ed. Medication Orders None record ed. Patient TargetsNo targets recorded. Patient InstructionsNo instructions recorded. Reason for Referral None Reported. Problems Name Problem SNOMED Code Status Onset Date Resolution Date Notes Provider Name and Address Organization Details Recorded Time Hospice care Completed 05/24/2020 This problem was added from Social History by prashant on 10/08/19 19 Kathy Sarah null, [facility] 0 17:36:19 Acquired hypothyr oidism 188647399 Active 2016 Rachana Kathryn null, [place] - [facility] 1 13:54:48 Mixed hyperlip idemia 682244724 Active 2016 Crystal [place] [facility] 1 13:54:48 [facility] hyperten margarita 87006521 Active 2016 Crystal [place] [facility] 1 13:54:48 Chronic anxiety 906495642 Active 2016 Crystal [place] [facility] 13:54:48 Diabetes mellitus 47266997 Completed 201612/05/2020 Rachana Graves RN [address], [place], [address] , [place] [facility] 1 07:52:02 Gastroes ophageal reflux disease without esophagi tis 136903712 Active 2016 Crystal Kathryn [place] [facility] 1 13:54:48 Major depressi ve disorder 084410472 Active 2016 Crystal [place] [facility] 1 13:54:48 Steatoti c liver disease 794216777 Active 2016 Crystal [place] [facility] 1 13:54:48 Deviated nasal septum 409508632 Active 2016 Crystal [place] [facility] 1 13:54:48 Renewal of prescrip tion Completed 201612/24/2017 Piedad [place] [facility] 8 12:41:39 Persiste nt insomnia 090344298 Active 2017 Crystal [place] [facility] 1 13:54:48 Degenera tion of interver tebral disc 77979888 Active 2017 Crystal [place] [facility] 1 13:54:48 Generali zed osteoart hritis 678077153 Active 2017 Crystal [place] [facility] 1 13:54:48 Pain radiatin g to neck 720729289 Completed 201703/14/2018 Piedad Aquinohop null[place] [facility] 8 19:14:35 Degenera tion of cervical interver tebral disc 60700320 Active 2017 Crystal Kath[place] [facility] 1 13:54:48 Recurren t major depressi on 80840629 Active 2020 Crystal [place] [facility] 1 13:54:48 Malignan t neoplasm of colon 326474381 Active 2020 Kathy [place] [facility] 1 14:10:59 Uncontro lled type 2 diabetes mellitus 053269791 Active 2021 Zachary Abel [place] [facility] 2 14:43:51 Allergic rhinitis 91764107 Completed 202205/28/2023 Crystal Kath[place] [facility] 3 13:36:38 Pain of right shoulder joint 55213724051 223407 Completed 202212/16/2024 Rachana Graves RN [address], [place], [address] , [place] [facility] 5 11:18:22 Chronic back pain 778488724 Active 2022 Sandy Quintana, GUNNAR [address], [place], [address] , [place] [facility] 3 15:01:26 Increase d frequenc y of urinatio n 529595117 Completed 202212/16/2024 Rachana Graves RN [address], [place], [address] , [place] [facility] 5 11:18:02 Type 2 diabetes mellitus 48570081 Active 2022 Sandy Quintana, GUNNAR [address], [place], [address] , [place] [facility] 3 14:24:29 Leukocyt es in urine 881198355 Completed 202212/16/2024 Rachana Graves RN [address], [place], [address] , [place] [facility] 5 11:18:07 Acute urinary tract infectio n 814988384 Completed 202212/10/2023 Crystal Kath[place] [facility] 4 13:04:20 Acquired absence of cervix and uterus 265244388 Active 2023 Crystal Kath[place] [facility] 4 13:10:54 Acute lower respirat ory tract infectio n 980062061 Completed 202312/20/2023 Crystal Kath[place] [facility] 4 13:05:57 Urine culture - E. 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 Procedures Surgical History Date Name Laterality Status Provider Name and Address Organization Details Recorded Time 021 Advance Care Planning completed Rachana Del Tororod [place] - [facility] 12/05/2020 09:02:19 021 Functional Status Assessed completed Rachana Del [place]od [place] [facility] 12/05/2020 09:02:20 021 Colonoscopy completed Rachana Del [place]od [place] [facility] 12/05/2020 09:11:46 018 Cryosurgery Dermatology completed Kathy Smith [place] [facility] 04/10/2018 15:22:14 018 Cryosurgery Dermatology completed Kathy Smith [place] [facility] 04/07/2018 16:52:25 018 Shave Biopsy trunk, arms, or legs completed Kathy Smith [place] [facility] 04/10/2018 15:28:52 018 Advance Care Planning completed Piedad De Los Santos [place] [facility] 02/26/2018 08:09:53 018 Suture/Staple removal completed Neo Gu [place] [facility] 12/18/2017 11:26:24 018 Skin Lesion/Tag Removal- SS completed Piedad De [place] [facility] 12/10/2017 19:05:34 000 total hysterectomy completed [facility]eralta [place] [facility] 12/10/2023 13:10:27 Cholecystectomy, laparoscopic completed [facility]eralta [place] [facility] 05/23/2020 14:24:22 Cystourethroscopy completed Piedad De Los [place] [facility] 03/18/2017 15:38:07 Nsl/sins ndsc frnt tiss rmvl completed Piedad De Los [place] - [facility] 03/18/2017 15:38:17 Imaging Results None recorded. Procedure Notes None recorded. Medical Equipment None Reported. Allergies Allergen ID Allergen Name Allergen Category Reaction Reaction Severity Criticality Documentation Date Start Date Code Code System Note Provider Name and Address Organization Details Recorded Time 685401 Farxiga medicatio n vomiting Not available Not available 04/25/2021 39793 72 RxNorm Miriam Leiva PharmD [address], [place], [address], [facility] - [facility] 3 11:38:01 392580 Januvia medicatio n vomiting Not available Not available 08/06/2022 05010 6 RxNorm Miriam Leiva PharmD [address], [place], [address], [place] [facility] 3 11:38:11 10492 citalopra m hydrobrom jef medicatio n vomiting Not available Not available 06/15/20162009 22958 8 RxNorm Miriam Leiva PharmD [address], [place], [address], [facility] - [facility] 3 11:37:45 63490 Wellbutri n medicatio n dizziness Not available Not available 06/15/20162009 96754 RxNorm React ion: Verti go; Not Available [facility] 6 09:04:46 Medications Name Sig Start Date [...] Disconti nued on: 04/04/20 10 9:47AM;U ser: voylesj; Est. Completi on: 02/06/20 10;Print ed: 01/07/20 [...] Disconti nued on: 02/05/20 09 3:46PM;U ser: bishopk; Est. Completi on: 04/16/20 09;Indic ation: Type 2 Diabetes Mellitus - ( 00) Not Available Not Available Not Available trazodone 50 mg tablet take 1 tablet (50 mg) by oral route once daily at bedtime for 30 days 01/31 completed trazodon e 50 mg oral tablet;R ecorded Status: Recorded on: 10/02/19 12 9:28AM;D iscontin ued Status: Disconti nued on: 02/01/20 12 8:43AM;U ser: calvom;E st. Completi on: 12/31/19 12;Indic ation: Insomnia - (167805 20);Prin ino: 10/02/19 12 Not Available Not [...] oral tablet;R ecorded Status: Recorded on: 09/20/19 09 2:32PM;D iscontin ued Status: Disconti nued on: 10/18/19 09 1:50PM;U ser: neuss;Es t. Completi on: 10/20/19 09;Print ed: 09/20/19 09 Not Available Not Available Not Available lovastati [...] Disconti nued on: 01/07/20 10 12:04PM; User: calvom;E st. Completi on: 02/03/20 10;Print ed: 01/04/20 10 Not [...] le 20 mg oral capsule, delayed release( /EVELIO);R ecorded Status: Recorded on: 05/06/20 14 8:50AM;D [...] on: 05/27/20 12;Indic ation: Hemorrho ids - (07.4556 00);Prin ino: 05/13/20 12 Not Available Not [...] Completi on: 06/21/20 14;Indic ation: Pain - (05.2565 68);Adria Piper fied: 06/08/20 14 12:45AM Not Available Not [...] Prescrib ed on: 06/08/20 14 12:43AM; User: [email or web address];Es t. Completi on: 06/21/20 14;Indic ation: Muscle Spasm - (20.3852 91);Adria Piper fied: 06/08/20 14 12:43AM Not Available Not Available Not Available Premarin 0.625 mg/gram vaginal cream apply 0.5 gram with fingers by vaginal route q HS x 1 week, then twice weekly 08/24 completed Premarin 0.625 mg/gram vaginal cream;Re corded Status: Recorded on: 06/05/20 12 2:54PM;D iscontin ued Status: Disconti nued on: 08/24/20 13 9:04AM;U ser: emperatriz;Michael st. Completi on: 09/03/20 12;Print ed: 06/05/20 [...] qd po 04/10 completed not linked in [place] Not Available Not Available Not Available cephalexi n 02/28 completed cephalex in Oral;Rec orded Status: Recorded on: 02/28/20 11 8:35AM;D iscontin ued Status: Disconti nued on: 02/29/20 11 10:25AM; User: [email or web address] Not Available Not Available Not Available Amaryl one bid 07/13 completed amaRYL 4 mg.;Jonnathan rded Status: Recorded on: 09/08/20 12 3:37PM;D iscontin ued Status: Disconti nued on: 07/13/20 13 9:03AM;U ser: naida; Est. Completi on: 10/08/19 13;Indic ation: dm [...] oral tablet;R ecorded Status: Recorded on: 10/14/19 9:47AM;U ser: grayn;Es t. Completi on: 02/12/20 15;Indic ation: Type 2 Diabetes Mellitus - ( 00);Prin ino: 10/14/19 15 Not Available Not [...] 15;Indic ation: Type 2 Diabetes Mellitus - ( 00);Prin ino: 10/07/19 15 Not Available Not Available Not Available Farxiga 10 mg tablet take 1 tablet (10 mg) by oral route once daily in the morning 10/07 completed Farxiga 10 mg oral tablet;R ecorded Status: Recorded on: 09/14/19 15 9:34AM;D iscontin ued Status: Disconti nued on: 10/07/19 15 4:16PM;U ser: grayn;Es t. Completi on: 01/13/20 15;Indic ation: Type 2 Diabetes Mellitus - (2500 00);Prin ino: 09/14/19 15 Not Available Not Available [...] 14;Indic ation: Type 2 Diabetes Mellitus - (03 00);Prin ino: 05/06/20 14 Not Available Not [...] Available Not Available Not Available Dexcom G7 Application Development Project Manager DIRECTED PER 90 DAYS active Not Available Not Available No t Available Dexcom G7 Sensor device USE DIRECTED PER 10 DAYS active Not Available Not Available No t Available Vitals None Recorded Social History Question Answer Notes LastModified by Organizat ion Details LastModified Time Tobacco Smoking Status Former Smoker 20 years ago Rachanamichael [place], [place] - [facility] 01/23/2022 14:37:30 Do You Have An Advance Directive? No [email or web address] Information not available 02/26/2018 Are You Blind Or Do You Have Difficulty Seeing? No [email or web address] Information not available 03/18/2017 What Is Your Level Of Caffeine Consumption? Moderate [email or web address] Information not available 03/18/2017 Are You Deaf Or Do You Have Serious Difficulty Hearing? No [email or web address] Information not available 03/18/2017 What Type Of Diet Are You Following? DIABETIC [email or web address] Information not available 03/18/2017 Which Illicit Or Recreational Drugs Have You Used? Never [email or web address] Information not available 03/18/2017 Hard Of Hearing Or Deaf In One Or Both Ears? No [email or web address] Information not available 03/18/2017 Legally Blind In One Or Both Eyes? No [email or web address] Information not available 03/18/2017 Marital Status [email or web address] Informatio n not available 02/26/2018 What Was The Date Of Your Most Recent Tobacco Screening? 07/07/2025 Information not available 07/07/2025 What Is Your Relationship Status? [email or web address] Information not available 03/18/2017 Seat Belts Used Routinely Yes [email or web address] Information not available 03/18/2017 Are You Sexually Active? No Information not available 02/27/2023 Smoke Alarm In Home Yes [email or web address] Information not available 03/18/2017 How Much Tobacco Do You Smoke? 2 PPD Information not available 03/18/2017 Do You Use Sunscreen Routinely? Yes [email or web address] Information not available 02/26/2018 Has Tobacco Cessation Counseling Been Provided? Yes Former Smoker Information not available 05/30/2022 On What Date Was Tobacco Cessation Counseling Provided? 07/07/2025 Information not available 07/07/2025 How Many Years Have You Smoked Tobacco? 40 [email or web address] Information not available 03/18/2017 Do You Have Difficulty Walking Or Climbing Stairs? No [email or web address] Information not available 03/18/2017 Sex: Female Functional Status Question Answer Note LastModified by Organizat ion Details LastModified Time Do you use any illicit or recreational drugs? No Information not available 08/06/2022 Do you or have you ever used any other forms of tobacco or nicotine? No Information not available 08/06/2022 What is your level of alcohol consumption? None [email or web address] Information not available 03/18/2017 Are you currently employed? No [email or web address] Information not available 03/18/2017 Urinary incontinence assessment performed? Yes [email or web address] Information not available 02/26/2018 Are you able to walk independently without assistance or assistive devices? YESWOREST [email or web address] Information not available 02/26/2018 Do you have difficulty doing errands alone? No [email or web address] Information not available 03/18/2017 Are you able to care for yourself independently? Yes [email or web address] Information not available 03/18/2017 What is your occupation? retired [email or web address] Information not available 03/18/2017 Do you have difficulty dressing, bathing, grooming, or toileting? No [email or web address] Information not available 03/18/2017 What is your exercise level? Occasional Information not available 03/18/2017 Mental Status Question Answer Note LastModified by Organization D etails LastModified Time Do you have difficulty concentrating, remembering or making decisions? No Information no t available 03/18/2017 Family History [...] Details Recorded Time Pneumococcal conjugate PCV20, polysaccharide [id number] conjugate, adjuvant, PF 4 completed Crystal Kathryn [place] [facility] 07/08/2024 13:08:02 Influenza, high-dose, trivalent, PF 4 completed Crystal Kath[place] [facility] 07/08/2024 13:08:02 pneumococcal polysaccharide PPV23 0 completed Crystal Kath[place] [facility] 05/23/2020 14:46:20 influenza, unspecified formulation 0 completed Not Available [facility] 06/10/2023 15:39:34 Tdap 3 completed Deb Scott [place] [facility] 11/26/2022 13:37:45 pneumococcal polysaccharide PPV23 3 completed Crystal Kath[place] [facility] 03/28/2021 13:54:48 Influenza, split virus, quadrivalent, preservative 7 completed Not Available [facility] 06/10/2023 15:39:34 Influenza, split virus, quadrivalent, preservative 8 completed Not Available [facility] 06/10/2023 15:39:34 Tdap 8 completed Not Available [facility] 09/26/2019 03:55:00 Influenza, split virus, quadrivalent, preservative 9 completed Not Available [facility] 06/10/2023 15:39:34 Influenza, split virus, quadrivalent, preservative 0 completed Not Available [facility] 06/10/2023 15:39:34 Influenza, high-dose, trivalent, PF 5 completed Sandy Quintana, BEE[employer] CATTLE SPECIALIST [address], [place], [address], [place] [facility] 06/15/2025 20:01:02 pneumococcal polysaccharide PPV23 9 completed Not Available [facility] 06/10/2023 15:39:34 pneumococcal polysaccharide PPV23 6 completed Crystal Kath[place] [facility] 08/06/2022 14:04:18 Pneumococcal conjugate PCV 13 5 completed Crystal [place] [facility] 08/06/2022 14:04:18 Pneumococcal conjugate PCV20, polysaccharide [id number] conjugate, adjuvant, PF 2 completed Crystal [place] [facility] 08/06/2022 14:04:18 Hep B, adult 8 completed Crystal [place] [facility] 08/06/2022 14:04:18 Tdap 0 completed Crystal [place] [facility] 08/06/2022 14:04:18 COVID-19 vaccine, vector-nr, rS-Ad26, PF, 0.5 mL 1 completed Crystal Kathryn null[place] [facility] 08/06/2022 14:04:19 Influenza, high-dose, quadrivalent, PF 2 completed Crystal Kath[place] [facility] 08/06/2022 14:04:19 pneumococcal polysaccharide PPV23 7 completed Crystal [place] [facility] 08/06/2022 14:04:19 Influenza, adjuvanted, trivalent, PF 7 completed Crystal [place] [facility] 08/06/2022 14:04:19 Influenza, high-dose, trivalent, PF 6 completed Crystal Kathryn [place] [facility] 08/06/2022 14:04:19 Hep B, adult 8 completed Crystal [place] [facility] 08/06/2022 14:04:19 Influenza, high-dose, quadrivalent, PF 3 completed Crystal [place] [facility] 12/10/2023 13:04:05 Pneumococcal conjugate PCV20, polysaccharide [id number] conjugate, adjuvant, PF 3 completed Crystal [place] [facility] 12/10/2023 13:04:05 Past Encounters Encounter ID Performer Location Encounter Start Date Encounter Closed Date Diagnosis/Indication Diagnosis SNOMED-CT Code Diagnosis ICD10 Code Diagnosis IMO Codes Diagnosis Note [id number] Sandy Quintana APRN [facility] [address] [place] [address] 06/15/2025 14:09:53 06/16/2025 08:07:03 Influenza vaccine needed [id number] 106 Z23 [id number] Sandy Quintana APRN [facility] [address] [place] [address] 06/15/2025 14:22:00 06/15/2025 14:31:34 Influenza vaccine needed [id number] 106 Z23 Health Concerns Section Related Observation LastModified by Organization Detai ls LastModified Time None Recorded Concern Status LastModified by Organization Details LastModified Time None Recorded Payers Encounter Date Sequence Insurance Name Policy Number Policy Mukherjee Covered Member ID Mukherjee Member ID Guarantor Name 06/15/2025 1 DAVID-[place]: SHAYY HERNANDEZ OF [facility] (MEDICARE REPLACEMENT [facility] O) [id number] Jacquelin Suresh [id number] Jacquelin Suresh OBGyn Episode No OBEpisode recorded.
--- OUTSIDE RECORDS SUMMARY | 2025-07-12 09:59 | XMS_ITS | Continuity of Care Document ---
Author Organization [facility], [facility] Address [address] [place] [address] Assessment No assessment recorded. Plan of Treatment [...] prashant on 10/08/19 19 Kathy Sarah null, [facility] [place] 17:36:19 Acquired hypothyr oidism 381814953 Active 2016 Rachana Kathryn null, [place] - [facility] 1 13:54:48 Mixed hyperlip idemia 074463653 Active 2016 Crystal Kathryn null, [place] [facility] 1 13:54:48 [facility] hyperten margarita 52839146 Active 2016 Crystal Kath[place] [facility] 1 13:54:48 Chronic anxiety 595129481 Active 2016 Crystal Kath[place] [facility] 13:54:48 Diabetes mellitus 07429953 Completed 201612/05/2020 Rachana Graves RN [address], [place], [address] , [place] - [facility] 1 07:52:02 Gastroes ophageal reflux disease without esophagi tis 417030063 Active 2016 Crystal Kathryn null, [place] - [facility] 1 13:54:48 Major depressi ve disorder 220696721 Active 2016 Crystal Kath[place] [facility] 1 13:54:48 Steatoti c liver disease 420935817 Active 2016 Crystal Kath[place] [facility] 1 13:54:48 Deviated nasal septum 069147485 Active 2016 Crystal Kath[place] [facility] 1 13:54:48 Renewal of prescrip tion Completed 201612/24/2017 Piedad null[place] - [facility] 8 12:41:39 Persiste nt insomnia 323554656 Active 2017 Crystal Kath[place] [facility] 1 13:54:48 Degenera tion of interver tebral disc 78861486 Active 2017 Crystal Kath[place] [facility] 1 13:54:48 Generali zed osteoart hritis 711779527 Active 2017 Crystal Kath[place] [facility] 1 13:54:48 Pain radiatin g to neck 043281668 Completed 201703/14/2018 Piedad Aquinohop null[place] - [facility] 8 19:14:35 Degenera tion of cervical interver tebral disc 37149118 Active 2017 Crystal Kath[place] [facility] 1 13:54:48 Recurren t major depressi on 71096356 Active 2020 Crystal Kath[place] [facility] 1 13:54:48 Malignan t neoplasm of colon 636666761 Active 2020 Kathy Smith null[place] [facility] 1 14:10:59 Uncontro lled type 2 diabetes mellitus 320785890 Active 2021 Zachary Abel null[place] - [facility] 2 14:43:51 Allergic rhinitis 03220256 Completed 202205/28/2023 Crystal Kathryn [place] [facility] 3 13:36:38 Pain of right shoulder joint 18911956923 740361 Completed 202212/16/2024 Rachana Graves RN [address], [place], [address] , [place] [facility] 5 11:18:22 Chronic back pain 430113119 Active 2022 Sandy Quintana, [employer] [address], [place], [address] , [place] - [facility] 3 15:01:26 Increase d frequenc y of urinatio n 073105539 Completed 202212/16/2024 Rachana Graves RN [address], [place], [address] , [place] [facility] 5 11:18:02 Type 2 diabetes mellitus 16744338 Active 2022 Sandy Quintana, [employer] [address], [place], [address] , [place] [facility] 3 14:24:29 Leukocyt es in urine 374478855 Completed 202212/16/2024 Rachana Graves RN [address], [place], [address] , [place] [facility] 5 11:18:07 Acute urinary tract infectio n 276996122 Completed 202212/10/2023 Crystal Kathryn [place] [facility] 4 13:04:20 Acquired absence of cervix and uterus 811355087 Active 2023 Crystal Kathryn [place] [facility] 4 13:10:54 Acute lower respirat ory tract infectio n 208158977 Completed 202312/20/2023 Crystal Kath[place] [facility] 4 13:05:57 Urine culture - E. 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 435508269 Active 2024 Sandy Quintana, [employer] [address], [place], [address] , [place] [facility] 15:04:15 Vitamin D deficien cy 29446323 Active 2024 Sandy Quintana, [employer] [address], [place], [address] , [place] [facility] 15:12:37 Problem Notes [...] 19:05:34 000 total hysterectomy [facility] [place] [facility]23 13:10:27 Cholecystectomy, laparoscopic [facility] [place] [facility]2020 14:24:22 Cystourethroscopy completed Piedad De Los [place] - [facility] 03/18/2017 15:38:07 Nsl/sins ndsc frnt tiss rmvl completed [facility] Los [place] [facility] 03/18/2017 15:38:17 Imaging Results None recorded. Procedure Notes None recorded. Medical Equipment None Reported. Allergies Allergen ID Allergen Name Allergen Category Reaction Reaction Severity Criticality Documentation Date Start Date Code Code System Note Provider Name and Address Organization Details Recorded Time [id number] Farxiga medicatio n vomiting Not available Not available 04/25/2021 10018 72 RxNorm Miriam Leiva PharmD [address], [place], [address], [facility] - [facility] 3 11:38:01 034639 Januvia medicatio n vomiting Not available Not available 08/06/2022 48941 6 RxNorm Miriam Leiva PharmD [address], [place], [address], [place] - [facility] 3 11:38:11 61050 citalopra m hydrobrom jef medicatio n vomiting Not available Not available 06/15/20162009 83188 8 RxNorm Miriam Leiva PharmD [address], [place], [address], [facility] - [facility] 3 11:37:45 61455 Wellbutri n medicatio n dizziness Not available Not available 06/15/20162009 67773 RxNorm React ion: Verti go; Not Available [...] Completi on: 06/21/20 14;Indic ation: Pain - (71.7447 04);Adria Piper fied: 06/08/20 14 12:45AM Not Available [...] on: 06/21/20 14;Indic ation: Muscle Spasm - (08.5940 83);Adria Pipre fied: 06/08/20 14 12:43AM Not Available Not [...] qd po 04/10 completed not linked in [place] Not Available Not Available Not Available cephalexi [...] Available Not Available Not Available Dexcom G7 Hand Packer DIRECTED PER 90 DAYS active Not Available [...] Do You Have An Advance Directive? No [email or web address] Information not available 02/26/2018 Are You Blind Or Do You Have Difficulty Seeing? No [email or web address] Information not available 03/18/2017 What Is Your Level Of Caffeine Consumption? Moderate [email or web address] Information not available 03/18/2017 Are You Deaf Or Do You Have Serious Difficulty Hearing? No Information not available 03/18/2017 What Type Of Diet Are You Following? DIABETIC [email or web address] Information not available 03/18/2017 Which Illicit Or Recreational Drugs Have You Used? Never [email or web address] Information not available 03/18/2017 Hard Of Hearing Or Deaf In One Or Both Ears? No [email or web address] Information not available 03/18/2017 Legally Blind In One Or Both Eyes? No [email or web address] Information not available 03/18/2017 Marital Status [email or web address] Informatio n not available 02/26/2018 What Was The Date Of Your Most Recent Tobacco Screening? 07/07/2025 Information not available 07/07/2025 What Is Your Relationship Status? [email or web address] Information not available 03/18/2017 Seat Belts Used Routinely Yes [email or web address] Information not available 03/18/2017 Are You Sexually Active? No Information not available 02/27/2023 Smoke Alarm In Home Yes [email or web address] Information not available 03/18/2017 How Much Tobacco Do You Smoke? 2 PPD [email or web address] Information not available 03/18/2017 Do You Use Sunscreen Routinely? Yes [email or web address] Information not available 02/26/2018 Has Tobacco Cessation Counseling Been Provided? Yes Former Smoker Information not available 05/30/2022 On What Date Was Tobacco Cessation Counseling Provided? 07/07/2025 Information not available 07/07/2025 How Many Years Have You Smoked Tobacco? 40 Information not available 03/18/2017 Do You Have Difficulty Walking Or Climbing Stairs? No [email or web address] Information not available 03/18/2017 Sex: Female Functional Status Question Answer Note LastModified by Organizat ion Details LastModified Time Do you use any illicit or recreational drugs? No Information not available 08/06/2022 Do you or have you ever used any other forms of tobacco or nicotine? No Information not available 08/06/2022 What is your level of alcohol consumption? None [email or web address] Information not available 03/18/2017 Are you currently employed? No Information not available 03/18/2017 Urinary incontinence assessment performed? Yes [email or web address] Information not available 02/26/2018 Are you able to walk independently without assistance or assistive devices? YESWOREST [email or web address] Information not available 02/26/2018 Do you have difficulty doing errands alone? No Information not available 03/18/2017 Are you able to care for yourself independently? Yes Information not available 03/18/2017 What is your occupation? retired Information not available 03/18/2017 Do you have difficulty dressing, bathing, grooming, or toileting? No [email or web address] Information not available 03/18/2017 What is your exercise level? Occasional [email or web address] Information not available 03/18/2017 Mental Status Question Answer Note LastModified by Organization D etails LastModified Time Do you have difficulty concentrating, remembering or making decisions? No [email or web address] Information no t available 03/18/2017 Family History [...] Details Recorded Time Pneumococcal conjugate PCV20, polysaccharide [id number] conjugate, adjuvant, PF 4 completed Crystal Kathryn null, [place] - [facility] 07/08/2024 13:08:02 Influenza, high-dose, trivalent, PF 4 completed Crystal Kath[place] [facility] 07/08/2024 13:08:02 pneumococcal polysaccharide PPV23 0 completed Crystal Kathryn [place] [facility] 05/23/2020 14:46:20 influenza, unspecified formulation 0 completed Not Available [facility] 06/10/2023 15:39:34 Tdap 3 completed Deb Scott null, [place] - [facility] 11/26/2022 13:37:45 pneumococcal polysaccharide PPV23 3 completed Crystal Kathryn [place] [facility] 03/28/2021 13:54:48 Influenza, split virus, quadrivalent, preservative 7 completed Not Available [facility] 06/10/2023 15:39:34 Influenza, split virus, quadrivalent, preservative 8 completed Not Available [facility] 06/10/2023 15:39:34 Tdap 8 completed Not Available [facility] 09/26/2019 03:55:00 Influenza, split virus, quadrivalent, preservative 9 completed Not Available [facility] 06/10/2023 15:39:34 Influenza, split virus, quadrivalent, preservative 0 completed Not Available [facility] 06/10/2023 15:39:34 Influenza, high-dose, trivalent, PF 5 completed Sandy Quintana, [employer] [address], [place], [address], [place] [facility] 06/15/2025 20:01:02 pneumococcal polysaccharide PPV23 9 completed Not Available [facility] 06/10/2023 15:39:34 pneumococcal polysaccharide PPV23 6 completed Crystal Kathryn [place] [facility] 08/06/2022 14:04:18 Pneumococcal conjugate PCV 13 5 completed Crystal Kath[place] [facility] 08/06/2022 14:04:18 Pneumococcal conjugate PCV20, polysaccharide [id number] conjugate, adjuvant, PF 2 completed Crystal [place] [facility] 08/06/2022 14:04:18 Hep B, adult 8 completed Crystal [place] [facility] 08/06/2022 14:04:18 Tdap 0 completed Crystal [place] [facility] 08/06/2022 14:04:18 COVID-19 vaccine, vector-nr, rS-Ad26, PF, 0.5 mL 1 completed Crystal Kath[place] [facility] 08/06/2022 14:04:19 Influenza, high-dose, quadrivalent, PF 2 completed Crystal [place] [facility] 08/06/2022 14:04:19 pneumococcal polysaccharide PPV23 7 completed Crystal [place] [facility] 08/06/2022 14:04:19 Influenza, adjuvanted, trivalent, PF 7 completed Crystal Ka[place]ryn [place] [facility] 08/06/2022 14:04:19 Influenza, high-dose, trivalent, PF 6 completed Crystal [place] [facility] 08/06/2022 14:04:19 Hep B, adult 8 completed Crystal [place] [facility] 08/06/2022 14:04:19 Influenza, high-dose, quadrivalent, PF 3 completed Crystal [place] [facility] 12/10/2023 13:04:05 Pneumococcal conjugate PCV20, polysaccharide [id number] conjugate, adjuvant, PF 3 completed Crystal Kath[place] [facility] 12/10/2023 13:04:05 Past Encounters Encounter ID Performer Location Encounter Start Date Encounter Closed Date Diagnosis/Indication Diagnosis SNOMED-CT Code Diagnosis ICD10 Code Diagnosis IMO Codes Diagnosis Note [id number] Sandy Quintana APRN [facility] [address] [place] [address] 06/15/2025 14:09:53 06/16/2025 08:07:03 Influenza vaccine needed [id number] 106 Z23 [id number] Sandy Quintana APRN [facility] [address] [place] [address] 06/15/2025 14:22:00 06/15/2025 14:31:34 Influenza vaccine needed [id number] 106 Z23 Health Concerns Section Related Observation LastModified by Organization Detai ls LastModified Time None Recorded Concern Status LastModified by Organization Details LastModified Time None Recorded Payers Encounter Date Sequence Insurance Name Policy Number Policy Mukherjee Covered Member ID Mukherjee Member ID Guarantor Name 06/15/2025 1 DAVID-[place]: SHAYY HERNANDEZ OF [facility] ([employer]ICARE [employer]PLACEMENT [employer]AL O) [id number] Jacquelin Suresh [id number] Jacquelin Suresh OBGyn Episode No OBEpisode recorded.
--- OUTSIDE RECORDS SUMMARY | 2025-07-12 10:00 | XMS_ITS | Data Portability ---
Author Organization [facility] Address [address] [place] [address] Assessment No assessment recorded. Plan of Treatment Reminders Order Date Submit Date Provider Last Modified By Organization Details Last Modified Time Details Appointments None recorded. Lab HbA1c (hemoglobin A1c), blood 2024 025 [facility], [address] [place], [address], 5 13:45:42 CBC w/ auto diff 2024 025 PRASHANT [facility], [address], Fredi [address], [place], [address], 5 09:39:26 cobalamin and folate panel, serum 2024 025 PRASHANT [facility], [address]i F, [place], [address], 5 09:39:30 HbA1c (hemoglobin A1c), blood 2024 025 PRASHANT [facility], [address], [place], [place], [address], 5 09:39:31 CMP, serum or plasma 2024 025 PRASHANT [facility], [address], [place]i F, [place], [address], 5 09:39:27 lipid panel, serum 2024 025 PRASHANT [facility], [address], [place], [place], [address], 5 09:39:28 thyroid panel, serum 2024 025 PRASHANT [facility], [address], [place], [place], [address], 5 09:39:29 vitamin D, 25-hydroxy, total, serum 2024 025 PRASHANT [facility], [address], [place], [place], [address], 5 09:39:31 Referral None recorded. Procedures None recorded. Surgeries None recorded. Imaging None recorded. Medication Orders Macrobid 100 mg capsule [address], [address], 5 16:01:10 sertraline 50 mg tablet [address], [address], 5 15:13:25 levothyroxi ne 125 mcg tablet [address], [address], 5 15:13:28 Vitamin D3 25 mcg (1,000 unit) tablet [address], [address], 5 15:13:27 metformin 1,000 mg tablet [address], [address], 5 15:13:25 Lantus Solostar U-100 Insulin 100 unit/mL (3 mL) subcutaneou s pen 2024 025 [email or web address] [facility], [address] [place] [address], [place], [address], 5 16:34:59 lisinopril [address] mg tablet [address] [facility], [address] [place] [address], [place], [address], 5 15:13:26 omeprazole 40 mg capsule,del ayed release 2024 025 [facility], [address] [place] [address], [place], [address], 5 15:13:26 Patient TargetsNo targets recorded. Patient Instructions Encounter Date Encounter Id Patient Instructions Last Modified By Organization Details Last Modified Time 11/09/2024 [id number] learning about healthy weight Not available 11/09/2024 17:06:25 body mass index: care instructions Not available 11/09/2024 17:06:25 Advised to take medication as directed Will call with results of labs once available Encouraged to follow heart healthy lifestyle - low fat diet and aim for 30 minutes per day of physical exercise. To call office for questions, concerns or issues Not available 11/09/2024 15:14:32 03/22/2025 [id number] Advised to take medication as directed Discussed results of in office testing with pt Encouraged to follow heart healthy lifestyle - low fat diet and aim for 30 minutes per day of physical exercise. To call office for questions, concerns or issues Not available 03/22/2025 14:36:32 07/07/2025 [id number] learning about healthy weight Not available 07/07/2025 [...] 07/07/2025 17:10:12 Reason for Referral None Reported. Results Created Date Observation Date Name Description Value Unit Range Abnormal Flag Note LastModifiedBy Organization Detail LastModifiedTime 11/12/1911/12/2024 CBC WITH DIFFE RENTI AL/PL ATELE T WBC 7.1 x10e3 /uL 3.4-10 .8 normal Not Available [facility] ([facility]) [address] [place], [address], 11/12/2024 09:39:26 11/12/19 25 11/12/2024 CBC WITH DIFFE RENTI AL/PL ATELE T RBC 4.55 x10e6 /uL 3.77-5 .28 normal Not Available [facility] ([facility]) [address] [place], [address], 11/12/2024 09:39:26 11/12/19 25 11/12/2024 CBC WITH DIFFE RENTI AL/PL ATELE T hemoglobin 13.0 g/dL 11.1-1 5.9 normal Not Available [facility] ([facility]) [address] [place], [address], 11/12/2024 09:39:26 11/12/19 25 11/12/2024 CBC WITH DIFFE RENTI AL/PL ATELE T hematocrit 41.3 % 34.0-4 6.6 normal Not Available [facility] ([facility]) [address] [facility], [place], [address], 11/12/2024 09:39:26 11/12/19 25 11/12/2024 CBC WITH DIFFE RENTI AL/PL ATELE T MCV 91 fL 79-97 normal Not Available [facility] ([facility]) [address] [place], [address], 11/12/2024 09:39:26 11/12/19 25 11/12/2024 CBC WITH DIFFE RENTI AL/PL ATELE T MCH 28.6 pg 26.6-3 3.0 normal Not Available [facility] ([facility]) [address] [facility], [place], [address], 11/12/2024 09:39:26 11/12/19 25 11/12/2024 CBC WITH DIFFE RENTI AL/PL ATELE T MCHC 31.5 g/dL 31.5-3 5.7 normal Not Available [facility] ([facility]) [address] [place], [address], 11/12/2024 09:39:26 11/12/19 25 11/12/2024 CBC WITH DIFFE RENTI AL/PL ATELE T RDW 13.9 % 11.7-1 5.4 Not Available [facility] ([facility]) [address] [place], [address], 11/12/2024 09:39:26 11/12/19 25 11/12/2024 CBC WITH DIFFE RENTI AL/PL ATELE T platelets 316 x10e3 /uL 150-45 0 normal Not Available [facility] ([facility]) [address] [place], [address], 11/12/2024 09:39:26 11/12/19 25 11/12/2024 CBC WITH DIFFE RENTI AL/PL ATELE T neutrophils 52 % not estab. normal Not Available [facility] ([facility]) [address] [facility], [place], [address], 11/12/2024 09:39:26 11/12/19 25 11/12/2024 CBC WITH DIFFE RENTI AL/PL ATELE T lymphs 34 % not estab. normal Not Available [facility] ([facility]) [address] [place], [address], 11/12/2024 09:39:26 11/12/19 25 11/12/2024 CBC WITH DIFFE RENTI AL/PL ATELE T monocytes 8 % not estab. normal Not Available [facility] ([facility]) [address] [place], [address], 11/12/2024 09:39:26 11/12/19 25 11/12/2024 CBC WITH DIFFE RENTI AL/PL ATELE T eos 5 % not estab. normal Not Available [facility] ([facility]) [address] [facility], [place], [address], 11/12/2024 09:39:26 11/12/19 25 11/12/2024 CBC WITH DIFFE RENTI AL/PL ATELE T basos 1 % not estab. normal Not Available [facility] ([facility]) [address] [facility], [place], [address], 11/12/2024 09:39:26 11/12/19 25 11/12/2024 CBC WITH DIFFE RENTI AL/PL ATELE T immature cells INSURANCE AND BENEFITS CLERK Not Available [facility] ([facility]) [address] [place], [address], 11/12/2024 09:39:26 11/12/19 25 11/12/2024 CBC WITH DIFFE RENTI AL/PL ATELE T neutrophils (absolute) 3.7 x10e3 /uL 1.4-7. 0 normal Not Available [facility] ([facility]) [address] [place], [address], 11/12/2024 09:39:26 11/12/19 25 11/12/2024 CBC WITH DIFFE RENTI AL/PL ATELE T lymphs (absolute) 2.4 x10e3 /uL 0.7-3. 1 normal Not Available [facility] ([facility]) [address] [place], [address], 11/12/2024 09:39:26 11/12/19 25 11/12/2024 CBC WITH DIFFE RENTI AL/PL ATELE T monocytes(ab solute) 0.6 x10e3 /uL 0.1-0. 9 normal Not Available [facility] ([facility]) [address] [place], [address], 11/12/2024 09:39:26 11/12/19 25 11/12/2024 CBC WITH DIFFE RENTI AL/PL ATELE T eos (absolute) 0.4 x10e3 /uL 0.0-0. 4 normal Not Available [facility] ([facility]) [address] [place], [address], 11/12/2024 09:39:26 11/12/19 25 11/12/2024 CBC WITH DIFFE RENTI AL/PL ATELE T baso (absolute) 0.1 x10e3 /uL 0.0-0. 2 normal Not Available [facility] ([facility]) [address] [place], [address], 11/12/2024 09:39:26 11/12/19 25 11/12/2024 CBC WITH DIFFE RENTI AL/PL ATELE T immature granulocytes 0 % not estab. Not Available [facility] ([facility]) [address] [place], [address], 11/12/2024 09:39:26 11/12/19 25 11/12/2024 CBC WITH DIFFE RENTI AL/PL ATELE T immature grans (abs) 0.0 x10e3 /uL 0.0-0. 1 Not Available [facility] ([facility]) [address] [facility], [place], [address], 11/12/2024 09:39:26 11/12/19 25 11/12/2024 CBC WITH DIFFE RENTI AL/PL ATELE T NRBC INSURANCE AND BENEFITS CLERK Not Available [facility] ([facility]) [address] [facility], [place], [address], 11/12/2024 09:39:26 11/12/19 25 11/12/2024 CBC WITH DIFFE RENTI AL/PL ATELE T hematology comments: INSURANCE AND BENEFITS CLERK Not Available [facility] ([facility]) [address] [facility], [place], [address], 11/12/2024 09:39:26 11/12/19 25 11/12/2024 COMP. METAB OLIC PANEL (14) glucose 149 mg/dL 70-99 above high normal Not Available [facility] ([facility]) [address] [facility], [place], [address], 11/12/2024 09:39:27 11/12/19 25 11/12/2024 COMP. METAB OLIC PANEL (14) BUN 17 mg/dL 8-27 normal Not Available [facility] ([facility]) [address] [facility], [place], [address], 11/12/2024 09:39:27 11/12/19 25 11/12/2024 COMP. METAB OLIC PANEL (14) creatinine 0.96 mg/dL 0.57-1 .00 normal Not Available [facility] ([facility]) [address] [facility], [place], [address], 11/12/2024 09:39:27 11/12/19 25 11/12/2024 COMP. METAB OLIC PANEL (14) eGFR 61 mL/mi n/1.7 3 >59 normal Not Available [facility] ([facility]) [address] [facility] [place], [address], 11/12/2024 09:39:27 11/12/19 25 11/12/2024 COMP. METAB OLIC PANEL (14) BUN/creatini ne ratio 18 12-28 normal Not Available [facility] ([facility]) [address] [facility] [place], [address], 11/12/2024 09:39:27 11/12/19 25 11/12/2024 COMP. METAB OLIC PANEL (14) sodium 142 mmol/ L 134-14 4 normal Not Available [facility] ([facility]) [address] [facility] [place], [address], 11/12/2024 09:39:27 11/12/19 25 11/12/2024 COMP. METAB OLIC PANEL (14) potassium 4.5 mmol/ L 3.5-5. 2 normal Not Available [facility] ([facility]) [address] [facility] [place], [address], 11/12/2024 09:39:27 11/12/19 25 11/12/2024 COMP. METAB OLIC PANEL (14) chloride 103 mmol/ L 96-106 normal Not Available [facility] ([facility]) [address] [facility] [place], [address], 11/12/2024 09:39:27 11/12/19 25 11/12/2024 COMP. METAB OLIC PANEL (14) carbon dioxide, total 18 mmol/ L 20-29 below low normal Not Available [facility] ([facility]) [address] [facility] [place], [address], 11/12/2024 09:39:27 11/12/19 25 11/12/2024 COMP. METAB OLIC PANEL (14) calcium 9.5 mg/dL 8.7-10 .3 normal Not Available [facility] ([facility]) [address] [place], [address], 11/12/2024 09:39:27 11/12/19 25 11/12/2024 COMP. METAB OLIC PANEL (14) protein, total 6.9 g/dL 6.0-8. 5 normal Not Available [facility] ([facility]) [address] [place], [address], 11/12/2024 09:39:27 11/12/19 25 11/12/2024 COMP. METAB OLIC PANEL (14) albumin 4.3 g/dL 3.8-4. 8 normal Not Available [facility] ([facility]) [address] [place], [address], 11/12/2024 09:39:27 11/12/19 25 11/12/2024 COMP. METAB OLIC PANEL (14) globulin, total 2.6 g/dL 1.5-4. 5 Not Available [facility] ([facility]) [address] [place], [address], 11/12/2024 09:39:27 11/12/19 25 11/12/2024 COMP. METAB OLIC PANEL (14) bilirubin, total 0.2 mg/dL 0.0-1. 2 normal Not Available [facility] ([facility]) [address] [place], [address], 11/12/2024 09:39:27 11/12/19 25 11/12/2024 COMP. METAB OLIC PANEL (14) alkaline phosphatase 66 IU/L 44-121 normal Not Available [facility] ([facility]) [address] [place], [address], 11/12/2024 09:39:27 11/12/19 25 11/12/2024 COMP. METAB OLIC PANEL (14) AST (SGOT) 22 IU/L 0-40 normal Not Available [facility] ([facility]) [address] [place], [address], 11/12/2024 09:39:27 11/12/19 25 11/12/2024 COMP. METAB OLIC PANEL (14) ALT (SGPT) 14 IU/L 0-32 normal Not Available [facility] ([facility]) [address] [facility] [place], [address], 11/12/2024 09:39:27 11/12/19 25 11/12/2024 LIPID PANEL cholesterol, total 151 mg/dL 100-19 9 normal Not Available [facility] ([facility]) [address] [place], [address], 11/12/2024 09:39:28 11/12/19 25 11/12/2024 LIPID PANEL triglyceride s 213 mg/dL 0-149 above high normal Not Available [facility] ([facility]) [address] [place], [address], 11/12/2024 09:39:28 11/12/19 25 11/12/2024 LIPID PANEL HDL cholesterol 46 mg/dL >39 normal Not Available [facility] ([facility]) [address] [place], [address], 11/12/2024 09:39:28 11/12/19 25 11/12/2024 LIPID PANEL VLDL cholesterol everton 35 mg/dL 5-40 Not Available [facility] ([facility]) [address] [place], [address], 11/12/2024 09:39:28 11/12/19 25 11/12/2024 LIPID PANEL LDL chol calc ([facility]) 70 mg/dL 0-99 Not Available [facility] ([facility]) [address] [place], [address], 11/12/2024 09:39:28 11/12/19 25 11/12/2024 LIPID PANEL LDL calc comment: INSURANCE AND BENEFITS CLERK Not Available [facility] ([facility]) [address] [facility], [place], [address], 11/12/2024 09:39:28 11/12/19 25 11/12/2024 THYRO ID PANEL WITH TSH TSH 4.130 uIU/m L 0.450- 4.500 normal Not Available [facility] ([facility]) [address] [facility] [place], [address], 11/12/2024 09:39:29 11/12/19 25 11/12/2024 THYRO ID PANEL WITH TSH thyroxine (T4) 10.1 ug/dL 4.5-12 .0 normal Not Available [facility] ([facility]) [address] [facility] [place], [address], 11/12/2024 09:39:29 11/12/19 25 11/12/2024 THYRO ID PANEL WITH TSH T3 uptake 28 % 24-39 normal Not Available [facility] ([facility]) [address] [place], [address], 11/12/2024 09:39:29 11/12/19 25 11/12/2024 THYRO ID PANEL WITH TSH free thyroxine index 2.8 1.2-4. 9 normal Not Available [facility] ([facility]) [address] [place], [address], 11/12/2024 09:39:29 11/12/19 25 11/12/2024 VITAM IN B12 AND FOLAT E vitamin B12 209 pg/mL 232-12 45 below low normal Not Available [facility] ([facility]) [address] [place], [address], 11/12/2024 09:39:30 11/12/19 25 11/12/2024 VITAM IN B12 AND FOLAT E folate (folic acid), serum 8.7 NG/mL >3.0 normal A serum folat e rainer ntrat ion of less than 3.1 ng/mL is consi dered to repre sent clini everton defic iency . Not Available [facility] ([facility]) [address] [facility], [place], [address], 11/12/2024 09:39:30 11/12/1911/12/2024 HEMOG LOBIN A1C hemoglobin A1C 12.2 % 4.8-5. 6 above high normal Predi abete s: 5.7 - 6.4 Diabe venkat: >6.4 Glyce polly contr ol for adult s with diabe venkat: <7.0 Not Available [facility] ([facility]) [address] [facility], [place], [address], 11/12/2024 09:39:31 11/12/1911/12/2024 VITAM IN D, 25-HY DROXY vitamin D, 25-hydroxy 37.7 NG/mL 30.0-1 00.0 Vitam in D defic iency has been defin ed by the Insti tute of Medic ine and an Endoc rine Socie ty pract ice guide line as a level of serum 25-OH vitam in D less than 20 ng/mL (1,2) . The Endoc rine Socie ty went on to furth er defin e vitam in D insuf ficie ncy as a level betwe en 21 and 29 ng/mL (2). 1. IOM (Inst itute of Medic ine). 2009. Dieta ry refer ence intak es for calci um and D. Ailyn avila [place]: The [facility] . 2. Delia reynolds MF, Jayy kraft [place], Gina off-F errar i HAMLIN, et al. Evalu ation , treat ment, and preve ntion of vitam in D defic iency : an Endoc rine Socie ty clini ever[place] pract ice guide line. JCEM. 2010; 96(7) :1911 -30. Not Available [facility] ([facility]) [address] [facility], [place], [address], 11/12/2024 09:39:31 03/22/20 25 03/22/2025 HbA1c (hemo globi n A1c), blood HbA1C 10.2 % Not Available [facility] [address] [place], [address], 03/22/2025 13:40:13 Result Notes None recorded. Problems Name Problem SNOMED Code Status Onset Date Resolution Date Notes Provider Name and Address Organization Details Recorded Time Hospice care Completed 05/24/2020 This problem was added from Social History by prashant on 10/08/19 19 Kathy Smith null, [place] - [facility] 0 17:36:19 Acquired hypothyr oidism 767094905 Active 2016 Crystal Kathryn null, [place] - [facility] 1 13:54:48 Mixed hyperlip idemia 350621928 Active 2016 Crystal Kathryn [place] [facility] 13:54:48 [facility] hyperten margarita 36082872 Active 2016 Crystal Kathryn [place] [facility] 1 13:54:48 Chronic anxiety 022963707 Active 2016 Crystal Kathryn [place] [facility] 1 13:54:48 Diabetes mellitus 21891077 Completed 201612/05/2020 Rachana Graves RN [address], [place], [address] , [place] - [facility] 1 07:52:02 Gastroes ophageal reflux disease without esophagi tis 702250141 Active 2016 Crystal Kathryn [place], [place] - [facility] 1 13:54:48 Major depressi ve disorder 847026371 Active 2016 Crystal Kathryn [place] [facility] 1 13:54:48 Steatoti c liver disease 771460338 Active 2016 Crystal Kathryn [place] [facility] 13:54:48 Deviated nasal septum 744848279 Active 2016 Crystal Kathryn [place] [facility] 1 13:54:48 Renewal of prescrip tion Completed 201612/24/2017 Piedad De Los Santos null[place] - [facility] 8 12:41:39 Persiste nt insomnia 304346768 Active 2017 Rachana Kathryn [place] [facility] 1 13:54:48 Degenera tion of interver tebral disc 57314702 Active 2017 Crystal Kathryn [place] [facility] 1 13:54:48 Generali zed osteoart hritis 219857593 Active 2017 Crystal Kathryn [place] [facility] 1 13:54:48 Pain radiatin g to neck 389280010 Completed 201703/14/2018 Piedad De Los Santos [place] - [facility] 8 19:14:35 Degenera tion of cervical interver tebral disc 71020960 Active 2017 Rachana Kathryn [place] [facility] 1 13:54:48 Recurren t major depressi on 90131623 Active 2020 Rachana Kathryn [place] - [facility] 1 13:54:48 Malignan t neoplasm of colon 261523474 Active 2020 Kathy Smith [place] [facility] 1 14:10:59 Uncontro lled type 2 diabetes mellitus 688236189 Active 2021 Zachary Abel null, [place] - [facility] 2 14:43:51 Allergic rhinitis 92726640 Completed 202205/28/2023 Rachana Del Tororod null, [place] - [facility] 3 13:36:38 Pain of right shoulder joint 65097940127 412093 Completed 202212/16/2024 Rachana Graves RN [address], [place], [address] , [place] - [facility] 5 11:18:22 Chronic back pain 343667974 Active 2022 Sandy Quintana APRN [address], [place], [address] , [place] - [facility] 3 15:01:26 Increase d frequenc y of urinatio n 246554526 Completed 202212/16/2024 Rachana Graves RN [address], [place], [address] , [place] - [facility] 5 11:18:02 Type 2 diabetes mellitus 97135009 Active 2022 Sandy Quintana APRN [address], [place], [address] , [place] - [facility] 3 14:24:29 Leukocyt es in urine 332166140 Completed 202212/16/2024 Rachana Graves RN [address], [place], [address] , [place] - [facility] 5 11:18:07 Acute urinary tract infectio n 960852566 Completed 202212/10/2023 Crystal Kathryn null[place] - [facility] 4 13:04:20 Acquired absence of cervix and uterus 269386040 Active 2023 Crystal Kathryn [place] [facility] 4 13:10:54 Acute lower respirat ory tract infectio n 156253584 Completed 202312/20/2023 Crystal Kathryn [place] [facility] 4 13:05:57 Urine culture - E. 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 Procedures Surgical History Date Name Laterality Status Provider Name and Address Organization Details Recorded Time 021 Advance Care Planning completed Crystal Kathryn [place] - [facility] 12/05/2020 09:02:19 021 Functional Status Assessed completed Crystal Kathryn [place] - [facility] 12/05/2020 09:02:20 021 Colonoscopy completed Crystal Kathryn [place] [facility] 12/05/2020 09:11:46 018 Cryosurgery Dermatology completed Kathy Short [place] - [facility] 04/10/2018 15:22:14 018 Cryosurgery Dermatology completed Kathy Short [place] [facility] 04/07/2018 16:52:25 018 Shave Biopsy trunk, arms, or legs completed Kathy Short [place] - [facility] 04/10/2018 15:28:52 018 Advance Care Planning completed Piedad De Los Santos [place] - [facility] 02/26/2018 08:09:53 018 Suture/Staple removal completed Neo Dodsonbrandi [place] - [facility] 12/18/2017 11:26:24 018 Skin Lesion/Tag Removal- SS completed Piedad De Los Santos [place] [facility] 12/10/2017 19:05:34 000 total hysterectomy completed Rachana Peralta [place] - [facility] 12/10/2023 13:10:27 Cholecystectomy, laparoscopic completed Rachana Del Tororod [place] - [facility] 05/23/2020 14:24:22 Cystourethroscopy completed Piedad De Los Santos [place] - [facility] 03/18/2017 15:38:07 Nsl/sins ndsc frnt tiss rmvl completed Piedad De Los Santos [place] [facility] 03/18/2017 15:38:17 Imaging Results None recorded. Procedure Notes None recorded. Medical Equipment None Reported. Allergies Allergen ID Allergen Name Allergen Category Reaction Reaction Severity Criticality Documentation Date Start Date Code Code System Note Provider Name and Address Organization Details Recorded Time [id number] Farxiga medicatio n vomiting Not available Not available 04/25/2021 20129 72 RxNorm Miriam Leiva PharmD [address], [place], [address], [place] - [facility] 3 11:38:01 [id number] Januvia medicatio n vomiting Not available Not available 08/06/2022 [id number] RxNorm Miriam Leiva PharmD [address], [place], [address], [place] [facility] 3 11:38:11 [id number] citalopra m hydrobrom jef medicatio n vomiting Not available Not available 06/15/20162009 93277 8 RxNorm Miriam Leiva PharmD [address], [place], [address], [place] [facility] 3 11:37:45 76303 Wellbutri n medicatio n dizziness Not available Not available 06/15/20162009 34024 RxNorm React ion: Verti go; Not Available [facility] 6 09:04:46 Medications Name Sig Start Date [...] Completi on: 12/31/19 12;Indic ation: Insomnia - (16.5424 20);Prin ino: 10/02/19 12 Not Available Not [...] 10/18/19 1:50PM;U ser: neuss;Es t. Completi on: 10/20/19;Print ed: 09/20/19 Not Available Not Available Not [...] nued on: 01/07/20 10 12:04PM; User: Chava Hannahi on: 02/03/20 10;Print ed: 01/04/20 10 Not [...] on: 05/27/20 12;Indic ation: Hemorrho ids - (07.4202 00);Prin ino: 05/13/20 12 Not Available Not [...] Prescrib ed on: 06/08/20 14 12:45AM; User: [email or web address];Ginny wolf Completi on: 06/21/20 14;Indic ation: Pain - (16.1089 00);Phar [email or web address] fied: 06/08/20 14 12:45AM Not [...] ed on: 06/08/20 14 12:43AM; User: Mishel t. Completi on: 06/21/20 14;Indic ation: Muscle Spasm - (13.7288 50);Phar Feliz fied: 06/08/20 14 12:43AM Not Available Not [...] qd po 04/10 completed not linked in [place] Not Available Not Available Not Available cephalexi n 02/28 completed cephalex in Oral;Rec orded Status: Recorded on: 02/28/20 11 8:35AM;D iscontin ued Status: Disconti nued on: 02/29/20 11 10:25AM; User: [email or web address] Not Available Not Available Not Available Amaryl [...] 15;Indic ation: Type 2 Diabetes Mellitus - (03 00);Prin ino: 10/14/19 15 Not Available Not [...] 14;Indic ation: Type 2 Diabetes Mellitus - ();Prin ino: 05/06/20 14 Not Available Not Available [...] Available Not Available Not Available Dexcom G7 Manager Delivery DIRECTED PER 90 DAYS active Not Available [...] Details Last Updated DateTime 5 165.1 cm 32 kg/m2 64171.7 4 g 68 /min 98 % 98 % 18 /min 8 136/68 mm[Hg] Rachana Del Tororod [place] - [facility] 5 14:44:22 Date Recorded Body height Body mass index (BMI) Body weight Heart rate Body temperature Oxygen saturation Oxygen saturation in Arterial blood by Pulse oximetry Respiratory rate Systolic And Diastolic Provider Name and Address Organization Details Last Updated DateTime 5 165.1 cm 32.2 kg/m2 19251.1 3 g 70 /min 98.2 [degF] 98 % 98 % 18 /min 132/90 mm[Hg] Julienne carrillo [place] - [facility] 5 13:26:07 Date Recorded Body height Body mass index (BMI) Body weight Heart rate Oxygen saturation Oxygen saturation in Arterial blood by Pulse oximetry Respiratory rate Pain severity - 0-10 verbal numeric rating [Score] - Reported Systolic And Diastolic Provider Name and Address Organization Details Last Updated DateTime 5 165.1 cm 31.3 kg/m2 87110.3 7 g 64 /min 97 % 97 % 18 /min 5 126/64 mm[Hg] Rachana Del Tororod [place] - [facility] 5 15:36:03 Social History Question Answer Notes LastModified by Organizat ion Details LastModified Time Tobacco Smoking Status Former Smoker 20 years ago Lonny gamez [place] - [facility] 01/23/2022 14:37:30 Do You Have An Advance Directive? No Information not available 02/26/2018 Are You Blind Or Do You Have Difficulty Seeing? No [email or web address] Information not available 03/18/2017 What Is Your Level Of Caffeine Consumption? Moderate [email or web address] Information not available 03/18/2017 Are You Deaf Or Do You Have Serious Difficulty Hearing? No [email or web address] Information not available 03/18/2017 What Type Of Diet Are You Following? DIABETIC [email or web address] Information not available 03/18/2017 Which Illicit Or Recreational Drugs Have You Used? Never [email or web address] Information not available 03/18/2017 Hard Of Hearing Or Deaf In One Or Both Ears? No [email or web address] Information not available 03/18/2017 Legally Blind In One Or Both Eyes? No [email or web address] Information not available 03/18/2017 Marital Status Informatio n not available 02/26/2018 What Was The Date Of Your Most Recent Tobacco Screening? 07/07/2025 Information not available 07/07/2025 What Is Your Relationship Status? [email or web address] Information not available 03/18/2017 Seat Belts Used Routinely Yes [email or web address] Information not available 03/18/2017 Are You Sexually Active? No Information not available 02/27/2023 Smoke Alarm In Home Yes [email or web address] Information not available 03/18/2017 How Much Tobacco Do You Smoke? 2 PPD [email or web address] Information not available 03/18/2017 Do You Use Sunscreen Routinely? Yes [email or web address] Information not available 02/26/2018 Has Tobacco Cessation Counseling Been Provided? Yes Former Smoker Information not available 05/30/2022 On What Date Was Tobacco Cessation Counseling Provided? 07/07/2025 Information not available 07/07/2025 How Many Years Have You Smoked Tobacco? 40 [email or web address] Information not available 03/18/2017 Do You Have Difficulty Walking Or Climbing Stairs? No [email or web address] Information not available 03/18/2017 Sex: Female Functional Status Question Answer Note LastModified by [email or web address] ion Details LastModified Time Do you use any illicit or recreational drugs? No Information not available 08/06/2022 Do you or have you ever used any other forms of tobacco or nicotine? No Information not available 08/06/2022 What is your level of alcohol consumption? None [email or web address] Information not available 03/18/2017 Are you currently employed? No [email or web address] Information not available 03/18/2017 Urinary incontinence assessment performed? Yes [email or web address] Information not available 02/26/2018 Are you able to walk independently without assistance or assistive devices? YESWOREST [email or web address] Information not available 02/26/2018 Do you have difficulty doing errands alone? No [email or web address] Information not available 03/18/2017 Are you able to care for yourself independently? Yes [email or web address] Information not available 03/18/2017 What is your occupation? retired Information not available 03/18/2017 Do you have difficulty dressing, bathing, grooming, or toileting? No [email or web address] Information not available 03/18/2017 What is your exercise level? Occasional [email or web address] Information not available 03/18/2017 Mental Status Question Answer Note LastModified by Organization D etails LastModified Time Do you have difficulty concentrating, remembering or making decisions? No [email or web address] Information no t available 03/18/2017 Family History [...] Details Recorded Time Pneumococcal conjugate PCV20, polysaccharide [id number] conjugate, adjuvant, PF 4 completed Crystal Kathryn [place] [facility] 07/08/2024 13:08:02 Influenza, high-dose, trivalent, PF 4 completed Crystal [place] [facility] 07/08/2024 13:08:02 pneumococcal polysaccharide PPV23 0 completed Crystal Kath[place] [facility] 05/23/2020 14:46:20 influenza, unspecified formulation 0 completed Not Available [facility] 06/10/2023 15:39:34 Tdap 3 completed Deb [place] [facility] 11/26/2022 13:37:45 pneumococcal polysaccharide PPV23 3 completed Crystal Kath[place] [facility] 03/28/2021 13:54:48 Influenza, split virus, quadrivalent, preservative 7 completed Not Available [facility] 06/10/2023 15:39:34 Influenza, split virus, quadrivalent, preservative 8 completed Not Available [facility] 06/10/2023 15:39:34 Tdap 8 completed Not Available [facility] 09/26/2019 03:55:00 Influenza, split virus, quadrivalent, preservative 9 completed Not Available [facility] 06/10/2023 15:39:34 Influenza, split virus, quadrivalent, preservative 0 completed Not Available [facility] 06/10/2023 15:39:34 Influenza, high-dose, trivalent, PF 5 completed Sandy Quintana, [employer] [address], [place], [address], [place] [facility] 06/15/2025 20:01:02 pneumococcal polysaccharide PPV23 9 completed Not Available [facility] 06/10/2023 15:39:34 pneumococcal polysaccharide PPV23 6 completed Crystal Kathryn [place] [facility] 08/06/2022 14:04:18 Pneumococcal conjugate PCV 13 5 completed Crystal Kath[place] [facility] 08/06/2022 14:04:18 Pneumococcal conjugate PCV20, polysaccharide [id number] conjugate, adjuvant, PF 2 completed Crystal [place] [facility] 08/06/2022 14:04:18 Hep B, adult 8 completed Crystal [place] [facility] 08/06/2022 14:04:18 Tdap 0 completed Crystal [place] [facility] 08/06/2022 14:04:18 COVID-19 vaccine, vector-nr, [id number], PF, 0.5 mL 1 completed Crystal Kath[place] [facility] 08/06/2022 14:04:19 Influenza, high-dose, quadrivalent, PF 2 completed [place] [facility] 08/06/2022 14:04:19 pneumococcal polysaccharide PPV23 7 completed Crystal [place] [facility] 08/06/2022 14:04:19 Influenza, adjuvanted, trivalent, PF 7 completed Crystal [place] [facility] 08/06/2022 14:04:19 Influenza, high-dose, trivalent, PF 6 completed Crystal [place] [facility] 08/06/2022 14:04:19 Hep B, adult 8 completed Crystal [place] [facility] 08/06/2022 14:04:19 Influenza, high-dose, quadrivalent, PF 3 completed Crystal Kathryn null, [place] - [facility] 12/10/2023 13:04:05 Pneumococcal conjugate PCV20, polysaccharide [id number] conjugate, adjuvant, PF 3 completed Crystal Kathryn [place] [facility] 12/10/2023 13:04:05 Past Encounters Encounter ID Performer Location Encounter Start Date Encounter Closed Date Diagnosis/Indication Diagnosis SNOMED-CT Code Diagnosis ICD10 Code Diagnosis IMO Codes Diagnosis Note [id number] [facility] [address] [place] [address] 09/05/2009 00:00:00 [id number] [facility] [address] [place] [address] 01/03/2010 00:00:00 [id number] [facility] [address] [place] [address] 04/04/2010 00:00:00 [id number] [facility] [address] [place] [address] 04/13/2010 00:00:00 [id number] [facility] [address] [place] [address] 10/10/2010 00:00:00 [id number] [facility] [address] [place] [address] 11/14/2007 00:00:00 [id number] [facility] [address] [place] [address] 09/05/2009 00:00:00 [id number] [facility] [address] [place] [address] 10/11/2009 00:00:00 [id number] [facility] [address] [place] [address] 02/01/2009 00:00:00 [id number] [facility] [address] [place] [address] 10/07/2014 00:00:00 [id number] [facility] [address] [place] [address] 10/14/2014 00:00:00 [id number] [facility] [address] [place] [address] 10/10/2010 00:00:00 [id number] [facility] [address] [place] [address] 01/10/2011 00:00:00 [id number] [facility] [address] [place] [address] 11/14/2007 00:00:00 [id number] [facility] [address] [place] [address] 02/25/2008 00:00:00 [id number] [facility] [address] [place] [address] 10/12/2008 00:00:00 [id number] [facility] [address] [place] [address] 02/01/2012 00:00:00 [id number] [facility] [address] [place] [address] 05/13/2012 00:00:00 [id number] [facility] [address] [place] [address] 01/10/2011 00:00:00 [id number] [facility] [address] [place] [address] 06/05/2012 00:00:00 [id number] [facility] [address] [place] [address] 02/27/2011 00:00:00 [id number] [facility] [address] [place] [address] 07/10/2012 00:00:00 [id number] [facility] [address] [place] [address] 02/28/2011 00:00:00 [id number] [facility] [address] [place] [address] 09/04/2012 00:00:00 [id number] [facility] [address] [place] [address] 04/10/2011 00:00:00 [id number] [facility] [address] [place] [address] 12/04/2012 00:00:00 [id number] [facility] [address] [place] [address] 06/12/2011 00:00:00 [id number] [facility] [address] [place] [address] 04/16/2013 00:00:00 [id number] [facility] [address] [place] [address] 07/13/2013 00:00:00 [id number] [facility] [address] [place] [address] 10/02/2011 00:00:00 [id number] [facility] [address] [place] [address] 02/01/2012 00:00:00 [id number] [facility] [address] [place] [address] 07/13/2013 00:00:00 [id number] [facility] [address] [place] [address] 08/24/2013 00:00:00 [id number] [facility] [address] [place] [address] 12/07/2013 00:00:00 [id number] [facility] [address] [place] [address] 02/08/2014 00:00:00 [id number] [facility] [address] [place] [address] 04/16/2013 00:00:00 [id number] [facility] [address] [place] [address] 05/06/2014 00:00:00 [id number] [facility] [address] [place] [address] 05/06/2014 00:00:00 [id number] [facility] [address] [place] [address] 05/20/2014 00:00:00 [id number] [facility] [address] [place] [address] 06/07/2014 00:00:00 [id number] [facility] [address] [place] [address] 09/14/2014 00:00:00 [id number] Neo Gu MD [address] [place] [address] 03/18/2017 14:15:42 03/18/2017 17:16:03 Nausea 494415695 R11.0 Essential hypertension 84728451 I10 Mixed hyperlipidemia 267 617647 E78.2 Gastroesop hageal reflux disease without esophagitis 258344953 K21.9 [id number] Neo Gu MD [address] [place] [address] 10/29/2017 17:11:08 11/16/2017 15:32:51 Essential hypertension 70774781 I10 Acquired hypothyroidism 394395586 E03.9 Uncontroll ed type 2 diabetes mellitus 461694741 E11.65 Chronic neck pain 791537 8730 107 M54.2 [id number] Neo Gu MD [address] [place] [address] 12/06/2017 08:00:55 12/06/2017 09:52:41 Steatotic liver disease 726146163 K76.0 Diabetes mellitus 032657 09 E11.9 Chronic anxiety 26625811 9 F41.9 Essential hypertension 03132119 I10 Mixed hyperlipidemia 267 470287 E78.2 Acquired hypothyroidism 136945613 E03.9 Body mass index 30+ - obesity 083142109 Z68.39 Pain of sh oulder region 45559349 M25.512 Neck pain 26754325 M54.2 [id number] Neo Gu MD [address] [place] [address] 12/10/2017 17:31:54 12/10/2017 19:43:33 Neoplasm of skin 378324378 D49.2 Inflamed s eborrheic keratosis 286710530 L82.0 Benign carlos plasm of skin 30838875 D23.39 [id number] Neo Gu MD [address] [place] [address] 12/18/2017 10:49:33 12/18/2017 12:40:26 Removal of suture 22779978 Z48.02 no charge Pain of oulder region 23494120 M25.512 Neck pain 74692112 M54.2 Degenerati on of cervical intervertebral disc 78995421 M50.30 [id number] Neo Gu MD [address] [place] [address] 02/26/2018 07:49:48 02/26/2018 11:00:52 Adult health examination 111049256 Z00.00 Depression screening 171 228507 Z13.89 Examinatio n of blood pressure 438486996 Z01.30 Diet education 70820145 Z71.3 Counseling 040076356 Z71 .82 Exercise counsellin g. Patient encouraged to exercise 30 minutes 5 days a week. Vaccine de clined by patient 8405330250 02 Z28.21 Body mass index 30+ - obesity 153110864 Z68.34 Essential hypertension 49352767 I10 Mixed hyperlipidemia 267 127569 E78.2 Acquired hypothyroidism 777176659 E03.9 Viral screening 54156146 4 Z11.59 Administra tion of diphtheria, pertussis, and tetanus vaccine 263825556 Z23 Diabetes mellitus 169501 09 E11.9 Gastroesop hageal reflux disease without esophagitis 489312086 K21.9 [id number] Kathy Smith APRN [address] [place] [address] 03/27/2018 10:22:47 03/27/2018 10:56:30 Body mass index 30+ - obesity 471055457 Z68.34 Neoplasm o f uncertain behavior of skin 53360473 D48.5 [id number] Kathy Smith [address] [place] [address] 4 03/31/2018 12:31:57 03/31/2018 13:48:40 Neoplasm of uncertain behavior of skin 52657548 D48.5 [id number] Kathy Smith [address] [place] [place] [address] 04/03/2018 14:35:55 04/03/2018 15:31:29 Actinic keratosis 765170488 L57.0 Neoplasm o f uncertain behavior of skin 97209342 D48.5 [id number] Kathy Smith[address] [place] [address] 04/10/2018 14:16:50 04/10/2018 15:30:47 Neoplasm of skin 204346640 D49.2 Actinic keratosis 755381 007 L57.0 [id number] Kathy Smith[address] [place] [address] 05/23/2020 14:02:57 05/23/2020 14:42:48 Acquired hypothyroidism 072361368 E03.9 Chronic anxiety 62848689 9 F41.9 Generalize d osteoarthritis 287090676 M15.9 Gastroesop hageal reflux disease without esophagitis 721045806 K21.9 Mixed hyperlipidemia 267 643000 E78.2 Major depr essive disorder 016818341 F32.9 Degenerati on of intervertebral disc 54345698 M51.9 Persistent insomnia 1919 59033 G47.09 Body mass index 30+ - obesity 428778765 Z68.32 Uncontroll ed type 2 diabetes mellitus 316320908 E11.65 Active or passive immunization 245659420 Z23 [id number] Kathy Sarah [address] [place] [address] 12/05/2020 08:41:57 12/05/2020 09:51:21 Uncontrolled type 2 diabetes mellitus 692760317 E11.65 Recurrent major depression 17869070 F33.1 stable Adult heal th examination 802077777 Z00.00 Depression screening 171 460138 Z13.89 stable Examinatio n of blood pressure 920962349 Z01.30 stable Diet education 51435176 Z71.3 Counseling 212696496 Z71 .82 Exercise counseling . Patient encouraged to exercise 30 minutes 5 days a week. At [facility] ed risk for falls 171530147 Z91.81 STEADI FAST screening score of __0___. Advance care planning 71 0914218 Z71.89 Body mass index 30+ - obesity 293269867 Z68.32 [id number] Kathy Smith [address] [place] [address] 03/28/2021 13:51:12 03/28/2021 15:30:33 Headache 19034076 R51.9 Essential hypertension 43731889 I10 [id number] Kathy Smith [address] [place] [address] 08/14/2021 15:18:39 08/14/2021 16:16:23 Viral screening 135414093 Z11.52 Acute sinusitis 09745936 J01.90 [id number] Alannah Box [address] [place] [address] 11/30/2021 13:15:13 11/30/2021 14:20:07 Viral screening 897450403 Z11.52 Steatotic liver disease 446983644 K76.0 [id number] Alannah Box [address] [place] [address] 12/25/2021 10:31:51 12/25/2021 10:55:27 Body mass index 30+ - obesity 921960451 Z68.33 Pre-surgery testing 1104 19066 Z01.89 Screening for malignant neoplasm of breast 357806744 Z12.31 [id number] Zachary Abel [address] [place] [address] 01/23/2022 14:11:12 01/23/2022 15:42:07 Persistent insomnia 948207738 G47.09 Essential hypertension 94129698 I10 Anxiety 46885301 F41.9 Acquired hypothyroidism 038313776 E03.9 Mixed hyperlipidemia 267 846675 E78.2 Type 2 dejah betes mellitus 93303170 E11.65 [id number] Abel[address] [place] [address] 02/06/2022 14:15:14 02/06/2022 14:56:00 Type 2 diabetes mellitus 11548371 E11.65 Uncontroll ed type 2 diabetes mellitus 042350829 E11.65 [id number] Alannah Box [address] [place] [address] 04/19/2022 15:15:35 04/19/2022 15:57:49 Acute sinusitis 30630459 J01.90 Type 2 dejah betes mellitus 36340516 E11.65 [id number] Alannah Box [address] [place] [address] 04/24/2022 10:49:25 04/24/2022 11:12:52 Chronic anxiety 824207601 F41.9 Acute bronchitis 0029301 2 J20.9 Nasal congestion 0326596 0 R09.81 [id number] Sandy Quintana [address] [place] [address] 05/30/2022 10:10:51 05/30/2022 11:59:11 Body mass index 30+ - obesity 242661464 Z68.31 Obesity 282441040 E66.3 Type 2 dejah betes mellitus 03469909 E11.65 Screening mammography 24 684046 Z12.31 Declines mammograph y Acquired hypothyroidism 068247561 E03.9 Chronic anxiety 48036792 9 F41.9 Steatotic liver disease 540316600 K76.0 Gastroesop hageal reflux disease without esophagitis 433786511 K21.9 Mixed hyperlipidemia 267 753284 E78.2 Uncontroll ed type 2 diabetes mellitus 420037500 E11.65 Essential hypertension 19260012 I10 History of calculus of kidney 546989736 Z87.902 [id number] Sandy Quintana [address] [place] [address] 08/06/2022 13:52:29 08/06/2022 14:37:12 Uncontrolled type 2 diabetes mellitus 511514819 E11.65 Essential hypertension 84333720 I10 Mixed hyperlipidemia 267 417713 E78.2 Chronic anxiety 18597964 9 F41.9 Acquired hypothyroidism 199088879 E03.9 [id number] Sandykatia Quintana [address] [place] [address] 11/14/2022 11:17:47 11/14/2022 12:38:19 Body mass index 25-29 - overweight 975170118 Z68.29 Overweight 660360951 E66 .3 Acquired hypothyroidism 200773973 E03.9 Chronic anxiety 42798861 9 F41.9 Persistent insomnia 1919 48752 G47.09 Gastroesop hageal reflux disease without esophagitis 236988241 K21.9 Mixed hyperlipidemia 267 222421 E78.2 Malignant neoplasm of colon 587417682 C18.9 Uncontroll ed type 2 diabetes mellitus 365821505 E11.65 Essential hypertension 91375768 I10 Degenerati on of intervertebral disc 96771788 M51.9 Type 2 dejah betes mellitus 81693934 E11.65 Allergic rhinitis 056531 04 J30.9 [id number] Deb Scott [address] [place] [address] 11/26/2022 12:45:32 11/26/2022 13:49:22 Active or passive immunization 801690250 Z23 [id number] Sandykatia Quintana [address] [place] [address] 02/18/2023 14:24:57 02/18/2023 15:34:20 Acquired hypothyroidism 620714756 E03.9 Chronic anxiety 44454682 9 F41.9 Persistent insomnia 1919 70161 G47.09 Gastroesop hageal reflux disease without esophagitis 752945134 K21.9 Mixed hyperlipidemia 267 554268 E78.2 Malignant neoplasm of colon 921800152 C18.9 Major depr essive disorder 208313762 F32.9 Uncontroll ed type 2 diabetes mellitus 351913195 E11.65 Essential hypertension 73879796 I10 Body mass index 25-29 - overweight 541580627 Z68.29 Overweight 049408336 E66 .3 Degenerati on of cervical intervertebral disc 70617061 M50.30 Pain of ri ght shoulder joint 7420140274 1772341 M25.631 [id number] Sandy Quintana [address] [place] [address] 02/27/2023 14:29:40 02/27/2023 15:22:08 Body mass index 30+ - obesity 969978610 Z68.30 Obesity 592699611 E66.9 Essential hypertension 04997995 I10 Chronic back pain 447174 002 M54.9 Increased frequency of urination 680897249 R35.0 [id number] Sandy Quintana[address] [place] [address] 04/11/2023 14:38:19 04/11/2023 15:11:34 Body mass index 30+ - obesity 033586386 Z68.30 Obesity 536394737 E66.9 [id number] Sandy Quintana [address] [place] [address] 05/28/2023 13:15:59 05/28/2023 14:27:16 Pain of right shoulder joint 3264960782 1838562 M25.511 Body mass index 30+ - obesity 528210160 Z68.31 Obesity 941163220 E66.9 Uncontroll ed type 2 diabetes mellitus 214459323 E11.65 Acute urin alexia tract infection 035511827 N39.0 Type 2 dejah betes mellitus 79220291 E11.65 Leukocytes in urine 2757 85398 R82.79 [id number] Ban Whaley [address] [place] [address] 06/10/2023 15:36:54 06/10/2023 16:45:07 Influenza-like illness 80731224 B34.9 COVID-19 741228334 U07.1 Cough 79757229 R05.9 Uncontroll ed type 2 diabetes mellitus 674005937 E11.65 [id number] Sandy Quintana [address] [place] [address] 12/10/2023 12:59:19 12/10/2023 14:26:21 Uncontrolled type 2 diabetes mellitus 184533737 E11.65 Type 2 dejah betes mellitus 84195287 E11.65 Body mass index 30+ - obesity 351966599 Z68.32 Obesity 179185325 E66.9 Viral screening 18169816 4 Z11.52 Negative for COVID and influenza A & B per rapid screening Acute lowe r respiratory tract infection 103210686 J22 Nausea and vomiting 1693 1999 R11.2 [id number] Sandy Quintana [address] [place] [address] 12/20/2023 12:53:10 12/20/2023 13:29:17 Acquired hypothyroidism 768385602 E03.9 Chronic anxiety 29590579 9 F41.9 Mixed hyperlipidemia 267 742384 E78.2 Uncontroll ed type 2 diabetes mellitus 262292034 E11.65 Essential hypertension 88398513 I10 Screening for malignant neoplasm of breast 717591623 Z12.39 Body mass index 30+ - obesity 929741089 Z68.32 Obesity 685105396 E66.9 [id number] Sandy Quintana [address] [place] [address] 12/27/2023 14:17:38 12/27/2023 14:55:31 Body mass index 30+ - obesity 442374986 Z68.33 Obesity 206382514 E66.9 Dysuria 05741619 R30.0 [id number] Ozzy Martines MD [address] [place] [address] 03/06/2024 11:43:09 03/06/2024 13:33:52 Upper respiratory infection 69118413 J06.9 [id number] Sandykatia Quintana[address] [place] [address] 05/04/2024 14:14:01 05/04/2024 14:53:26 Body mass index 30+ - obesity 692892817 Z68.33 Obesity 759602547 E66.9 Recurrent urinary tract infection 522246754 N39.0 [id number] Alannah Box [address] [place] [address] 05/25/2024 15:15:59 05/25/2024 16:03:06 Dysuria 03330580 R30.0 Acute urin alexia tract infection 869190866 N39.0 Begin prescribed medication as written.Ad vised to increase water intake and decrease caffeine intake Allergic rhinitis 396644 04 J30.9 [id number] Sandy Lilian[address] [place] [address] 07/08/2024 12:53:12 07/08/2024 13:58:44 Body mass index 30+ - obesity 661748272 Z68.32 Obesity 533475662 E66.9 Seasonal allergy 2578168 04 J30.2 Allergic rhinitis 880650 04 J30.9 Cellulitis of skin 97804 1002 L03.90 [id number] Sandy Quintana[address] [place] [address] 11/09/2024 14:19:56 11/09/2024 15:11:02 Body mass index 30+ - obesity 585829819 Z68.32 Obesity 777606314 E66.9 Uncontroll ed type 2 diabetes mellitus 040173250 E11.649 Essential hypertension 32677528 I10 Malignant neoplasm of colon 929302594 C18.9 Mixed hyperlipidemia 267 027738 E78.2 Gastroesop hageal reflux disease without esophagitis 393010327 K21.9 Degenerati on of cervical intervertebral disc 28163626 M50.30 Recurrent major depression 83409239 F33.1 Chronic anxiety 32639703 9 F41.9 Persistent insomnia 1919 56768 G47.09 Acquired hypothyroidism 962998359 E03.9 Major depr essive disorder 171566759 F32.9 Vitamin D deficiency 347 71786 E55.9 [id number] Sandy Quintana [address] [place] [address] 03/22/2025 13:16:42 03/22/2025 14:56:51 Uncontrolled type 2 diabetes mellitus 334030975 E11.085 [id number] Sandy Quintana [address] 4 06/15/2025 14:09:53 06/16/2025 08:07:03 Influenza vaccine needed 8978361677 106 Z23 [id number] Sandy Quintana [address] [place] [address] 06/15/2025 14:22:00 06/15/2025 14:31:34 Influenza vaccine needed 9421074308 106 Z23 [id number] Sandy Quintana [address] [place] [address] 07/07/2025 15:27:49 07/07/2025 16:23:11 Obese class I 2830972636 66155 E66.811 Z68.31 2749080 Dysuria 59439830 R30.0 66669 Health Concerns Section Related Observation LastModified by Organization Detai ls LastModified Time None Recorded Concern Status LastModified by Organization Details LastModified Time None Recorded Advance Directives Directive N: Payers Insurance Date Sequence Insurance Name Policy Number Policy Mukherjee Covered Member ID Mukherjee Member ID Guarantor Name 03/22/2025 SLIDING FEE SCHEDULE - DISCOUNT Jacquelin Suresh 03/27/2023 SLIDING FEE SCHEDULE - DISCOUNT Jacquelin Suresh 03/18/2024 SLIDING FEE SCHEDULE - DISCOUNT Jacquelin Suresh 12/24/2021 1 [id number] (MEDICARE REPLACEMENT/AD VANTAGE - PPO) Jacquelin Suresh [id number] Jacquelin Suresh 03/28/2022 SLIDING FEE SCHEDULE - DISCOUNT Jacquelin Suresh 12/24/2021 1 [place]ACEMENT [place]IONAL PPO[id number] Jacquelin Suresh [id number] Jacquelin Suresh 07/06/2025 1 [place] [facility] [id number] Jacquelin Suresh [id number] Jacquelin Suresh Notes Date Note Type Note Provider Name and Address Organization Details Recorded Time 5 text/html ROS as noted in the HPI Presents for follow up regarding HTN, hypothyroidism, GERD, HLDFeeling Ren endorse joint pain - attributes to recent moving into her own apartmentNo chest pain, shortness of breath, dizziness, lightheadedness, syncope, palpitations or edema.No fever, chills or cough.Compliant with medicationsDoes not check home blood glucoseDenies alcohol, tobacco and illicit drug usage Sandy Quintana, GUNNAR [address], [place], [address], [place] - [facility] 11/09/2024 15:14:59 5 text/html ROS as noted in the HPI Presents for follow up regarding HTN, DM, hypothyroidismFeeling Ren endorse issues with chronic fatigueNo chest pain, shortness of breath, dizziness, lightheadedness, syncope, palpitations or edema.No fever, chills or cough.Compliant with medicationDenies tobacco, alcohol and illicit drug usage Sandy Quintana, [employer] [address], [place], [address], [place] - [facility] 03/22/2025 14:36:46 5 text/html ROS as noted in the HPI Presents with 5 days of burning upon urinationDoes endorse increased frequency, odor and discoloration to urineDoes endorse N/V/DDenies any suprapubic or CVA tendernessNo fever or chillsHas been increasing fluids without improvementNo chest pain, shortness of breath, dizziness, lightheadedness, syncope, palpitations or edema. Compliant with medicationsDenies alcohol, tobacco and illicit drug usage Sandy Quintana, [employer]EL[employer] [address], [place], [address], [facility] - [facility] 07/07/2025 17:10:35 OBGyn Episode No OBEpisode recorded.
== END 2025-07-09 23:59 ==
LOC: LAB.DROPOF 07-12 09:47
PROVIDERS: PCP Family Medicine; Visit Provider Family Medicine
DX: E11.9 Type 2 diabetes mellitus without complications (principal)
CPT/HCPCS: 80053